=== PATIENT | male | born 1985 | race Hispanic/Latino ===

== ENCOUNTER 2019-08-25 14:16 | Inpatient (IN) | payer OTHER ==
[~2019-08-25] VITALS: Ht 162.6 cm; Wt 110.2 kg
[2019-08-25] MEDS ORDERED: THIAMINE HCL 100 MG TABLET ONE (14:35)
[2019-08-25 14:48] LABS: BASOPHILS % (AUTO) 0.7 % (0.0-5.0); EOSINOPHILS % (AUTO) 0.4 % (0.0-8.0); HEMATOCRIT 40.3 % (42-54); LYMPHOCYTES % (AUTO) 29.7 % (21.0-51.0); MEAN CORPUSCULAR HEMOGLOBIN 30.3 pg (27.0-33.0); MEAN CORPUSCULAR VOLUME 91.8 fL (79-99); MONOCYTES % (AUTO) 9.9 % (3.0-13.0); NEUTROPHILS % (AUTO) 59.2 % (40.0-77.0); PLATELET COUNT (AUTO) 84 K/uL (130-400); RED BLOOD CELL COUNT(AUTO) 4.39 MIL/uL (4.50-6.20); RED CELL DISTRIBUTION WIDTH 13.2 % (11.0-15.5)
[2019-08-25 14:56] LABS: APPEARANCE,URINE Clear (CLEAR); BILIRUBIN,URINE Negative (NEGATIVE); COLOR,URINE Yellow (YELLOW); GLUCOSE, URINE (UA) Negative (NEGATIVE); KETONES,URINE Negative (NEGATIVE); LEUKOCYTE ESTERASE ,URINE Negative (NEGATIVE); NITRATE,URINE Negative (NEGATIVE); OCCULT BLOOD,URINE Negative (NEGATIVE); PROTEIN,URINE POS 2+ mg/dL (NEGATIVE)
[2019-08-25 14:59] LABS: CARBON DIOXIDE 25 mmol/L (21-32); CHLORIDE 98 mmol/L (101-111); CREATININE 0.6 mg/dL (0.5-1.5); GLOMERULAR FILTR. RATE CALC 164 mL/min (>60); GLUCOSE,RANDOM 126 mg/dL (70-105); POTASSIUM 3.7 mmol/L (3.5-5.1); SODIUM SERUM 136 mmol/L (136-145); UREA NITROGEN, BLOOD 3 mg/dL (7-18)
[2019-08-25 15:04] LABS: AMPHET/METH SCREEN,URINE NEGATIVE (NEGATIVE); BARBITURATE SCREEN, URINE NEGATIVE (NEGATIVE); BENZODIAZEPINES SCREEN,URINE NEGATIVE (NEGATIVE); CANNABINOID SCREEN,URINE NEGATIVE (NEGATIVE); COCAINE SCREEN,URINE NEGATIVE (NEGATIVE); OPIATE SCREEN,URINE NEGATIVE (NEGATIVE); PHENCYCLIDINE SCREEN,URINE NEGATIVE (NEGATIVE)
[2019-08-25 15:05] LABS: ALANINE AMINOTRANSFERASE 57 U/L (12-78); ALBUMIN 3.5 g/dL (3.5-5.0); ASPARTATE AMINOTRANSFERASE 182 U/L (10-37); BILIRUBIN,TOTAL 1.3 mg/dL (0.2-1.0); CREATINE KINASE, TOTAL 330 U/L (21-232); TOTAL PROTEIN, SERUM 10.3 g/dL (6.0-8.3)
[2019-08-25 15:24] LABS: ACETAMINOPHEN < 1 mcg/mL (10-29); SALICYLATE < 2.8 mg/dL (2.8-20.0)
[2019-08-25 15:27] LABS: ALCOHOL, BLOOD 494 mg/dL (0-10)
[2019-08-25 15:29] LABS: BACTERIA,URINE Few /HPF (None Seen); MUCUS,URINE Few LPF (None Seen); RBC,URINE 0-1 /HPF (0-1); SQUAMOUS EPITHELIAL CELL,UR 0-2 /HPF (0-2); WBC,URINE 0-1 /HPF (0-1)
[2019-08-25] MEDS ORDERED: SODIUM CHLORIDE 0.9% 1000ML 1,000 ML IV ONE ×3 (16:08→23:39)
[2019-08-25] MEDS ORDERED: IBUPROFEN 400 MG TABLET ONE (21:25)
[2019-08-26 04:33] LABS: HEMATOCRIT 39.9 % (42-54)
[2019-08-26] MEDS ORDERED: LORAZEPAM 2 MG/ML 1 ML VIAL ONE (05:13)
[2019-08-26] MEDS ORDERED: ONDANSETRON HCL 4 MG/2 ML VIAL ONE (05:13)
[2019-08-26] MEDS ORDERED: FAMOTIDINE/PF 20 MG/2 ML VIAL IV ONE (05:13)
[2019-08-26] MEDS ORDERED: SODIUM CHLORIDE 0.9% 1000ML 1,000 ML IV ONE (05:18)
[2019-08-26] MEDS: SODIUM CHLORIDE 0.9% 1000ML 1,000 ML IV SCH ×3 (05:29→17:04)
[2019-08-26] MEDS ORDERED: LIDOCAINE HCL-MPF 1% 2ML VIAL IJ PRN (05:30)
[2019-08-26] MEDS ORDERED: GLUCAGON 1MG KIT 1 MG ML IM PRN ×2 (05:30→10:15)
[2019-08-26] MEDS ORDERED: DIPHENHYDRAMINE HCL 25 MG CAPSULE PO PRN (05:30)
[2019-08-26] MEDS ORDERED: NITROGLYCERIN 0.4 MG SL TAB SL PRN (05:30)
[2019-08-26] MEDS ORDERED: POTASSIUM CHLORIDE 20 MEQ ERTAB PO PRN (05:30)
[2019-08-26] MEDS ORDERED: LORAZEPAM 2 MG/ML 1 ML VIAL IVP PRN ×2 (05:30)
[2019-08-26] MEDS ORDERED: ACETAMINOPHEN 325 MG TAB PO PRN ×2 (05:30→06:00)
[2019-08-26] MEDS ORDERED: DEXTROSE 50%-WATER 50 ML DISP.SYRIN IV PRN ×2 (05:30→10:15)
[2019-08-26] MEDS ORDERED: ONDANSETRON HCL 4 MG/2 ML VIAL IV PRN (05:30)
[2019-08-26] MEDS ORDERED: SODIUM CHLORIDE 0.9% 1000ML 1,000 ML IV SCH (05:30)
[2019-08-26] MEDS ORDERED: PHARMACY COMMUNICATION MISC PRN (05:30)
[2019-08-26] MEDS ORDERED: POTASSIUM CHLORIDE 10% ELIXIR 20 MEQ/15 ML UDCUP PO PRN (05:30)
[2019-08-26] MEDS ORDERED: MAGNESIUM 2GM PREMIX 50ML 50 ML IV PRN (05:30)
[2019-08-26] MEDS ORDERED: POTASSIUM CHLORIDE 10MEQ/100ML 100 ML IV PRN (05:30)
[2019-08-26] MEDS ORDERED: CHLORDIAZEPOXIDE HCL 25 MG CAP PO PRN (05:30)
[2019-08-26] MEDS ORDERED: PROMETHAZINE HCL 25 MG TABLET PO PRN (05:30)
[2019-08-26] MEDS: CHLORDIAZEPOXIDE HCL 25 MG CAP PO SCH ×3 (06:00→17:04)
[2019-08-26] MEDS ORDERED: CLONIDINE HCL 0.1 MG TABLET PO SCH (06:15)
[2019-08-26 06:22] LABS: CARBON DIOXIDE 24 mmol/L (21-32); CHLORIDE 101 mmol/L (101-111); CREATININE 0.6 mg/dL (0.5-1.5); GLOMERULAR FILTR. RATE CALC 164 mL/min (>60); GLUCOSE,RANDOM 122 mg/dL (70-105); POTASSIUM 3.9 mmol/L (3.5-5.1); SODIUM SERUM 138 mmol/L (136-145); UREA NITROGEN, BLOOD 4 mg/dL (7-18)
[2019-08-26] MEDS: THIAMINE HCL 100 MG, FOLIC ACID 1 MG, M.V.I. IV [ADULT] 10 ML in SODIUM CHLORIDE 0.9% 1... IV SCH (06:30)
[2019-08-26 06:33] LABS: ALANINE AMINOTRANSFERASE 55 U/L (12-78); ALBUMIN 3.4 g/dL (3.5-5.0); ASPARTATE AMINOTRANSFERASE 150 U/L (10-37); BILIRUBIN,TOTAL 1.4 mg/dL (0.2-1.0); CREATINE KINASE, TOTAL 350 U/L (21-232); MYOGLOBIN 36 ng/mL (10-92); PHOSPHORUS 3.8 mg/dL (2.5-4.9); TOTAL PROTEIN, SERUM 9.4 g/dL (6.0-8.3); TROPONIN I < 0.04 ng/mL (0.00-0.06)
[2019-08-26 06:35] LABS: BASOPHILS % (AUTO) 0.9 % (0.0-5.0); EOSINOPHILS % (AUTO) 0.7 % (0.0-8.0); LYMPHOCYTES % (AUTO) 26.6 % (21.0-51.0); MEAN CORPUSCULAR HEMOGLOBIN 30.9 pg (27.0-33.0); MEAN CORPUSCULAR HGB CONC 33.2 g/dL (32.0-36.0); MONOCYTES % (AUTO) 10.4 % (3.0-13.0); PLATELET COUNT (AUTO) 73 K/uL (130-400); RED BLOOD CELL COUNT(AUTO) 4.27 MIL/uL (4.50-6.20); RED CELL DISTRIBUTION WIDTH 13.4 % (11.0-15.5)
[2019-08-26 06:45] LABS: HEMOGLOBIN A1C 6.2 % (4.0-6.0)
[2019-08-26] MEDS: INSULIN HUMULIN R 100 UNIT/ML 3ML SQ SCH ×4 (07:30→21:00)
[2019-08-26 08:00] VITALS: BP 138/94
[2019-08-26] MEDS: FAMOTIDINE 20MG TAB 20 MG TAB PO SCH ×2 (09:00→19:47)
[2019-08-26] MEDS: FOLIC ACID 1 MG TABLET PO SCH (09:00)
[2019-08-26] MEDS: THIAMINE HCL 100 MG/ML 2ML VIAL IM SCH (09:00)
[2019-08-26] MEDS: MULTIVITAMIN TABLET PO SCH (09:00)
[2019-08-26] MEDS: ACETAMINOPHEN EXTRA STRENGTH 500 MG TABLET PO PRN ×2 (10:58→17:12)
[2019-08-26] MEDS ORDERED: LISI10TA7 PO (11:30)
[2019-08-26] MEDS ORDERED: INSULIN HUMULIN R 100 UNIT/ML 3ML SQ SCH (11:30)
[2019-08-26 12:00] VITALS: BP 162/91
[2019-08-26] MEDS ORDERED: LISINOPRIL 10 MG TABLET ONE (12:02)
--- NOTE | 2019-08-26 13:24 | NUR ---
DR. ROSAS NOTIFIED VIA PHONE. HE SAID OK AFTER GETTING RM NUMBER
[2019-08-26] MEDS: HYDRALAZINE HCL 20 MG/ML VIAL IV PRN (17:05)
--- NOTE | 2019-08-26 17:45 | NUR ---
INITIAL Patient lives with mother, Fior Keyes, [phone]. No home services or DME. 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 PCP is Dr. Ronel Ramires. Pharmacy is [facility] located on [facility]. Patient has no insurance or benefits. 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 Patient was provided with community resources for post hospitalization follow up. Patient was also provided with Good RX card for prescriptions and educated on [facility] $4 medication program and eMar $5 medication program. Patient is being assisted by [employer] for financial matters. Addendum: 08/26/19 at 1747 by RONEL STOCK Amended: Links added.
[2019-08-26 17:46] LABS: HEMATOCRIT 38.1 % (42-54)
--- NOTE | 2019-08-26 17:49 | NUR ---
ETOH & Suicidal Ideations SW met with patient and discussed alcohol abuse. Patient stated that he had starting drinking since he was 16 years old but would only drink socially. Patient admitted that he started to drink heavily after his daughter who was born prematurely at 6 months . Patient admits that he drank at least a 15 pack and several 24 oz cans of beer a day. He also admits to smoking marijuana since the age of 15 but only does it on occasion. Patient states he has not been sleeping more than 5 hours a day and eats only once a day due to little to no appetite. He states he suffers from depression and anxiety daily but has never sought treatment for his alcohol abuse, depression or anxiety. SW provided patient with information for counsel[facility] with [facility] and [facility]. Patient was also provided with information regarding local Substance abuse counseling centers and Alcholic Anonymous meetings. Patient once again was receptive. He stated that he does not remember stating that he wanted to kill himself but reports from his mother state otherwise. Patient is extremely shaky and unable to focus during conversation. He stated that he was extremely tired. Patient is presently on a 1:1 observation due to suicidal ideations. SW will follow up with patient to discuss further treatment options and goals for treatment.
--- NOTE | 2019-08-26 18:35 | NUR ---
pt with blood tinged phlegm continues to deny any hematemesis. pt's mother continuously asked pt if he was vomiting and he continued to say no. pt education regarding hematemesis with complications. explained of importance and rationale of informing doctor if pt has experienced any vomiting of blood and pt asked, "can they fix it". pt informed of procedures that could be done to help him if he was throwing up blood. pt reports he bled from his nose yesterday and saturday he spat up blood and had brought up bright red blood. pt denied any vomiting blood today and yesterday. h/h q6hrs. see labs. will continue to monitor.
--- NOTE | 2019-08-26 19:45 | NUR ---
MD CONSULT DR. GUTIERRES TO SEE AND EXAMEN PATIENT WITH ORDERS
[2019-08-26 19:50] VITALS: BP 159/89
[2019-08-26] MEDS ORDERED: SODIUM CHLORIDE 3% FOR INHALATION 4 ML/AMP VIAL.NEB IH ONE (22:44)
[2019-08-26 23:52] VITALS: BP 170/107
--- NOTE | 2019-08-27 | NUR ---
b/p b/p 170/107, no sob no c/o pain at this time, [id number] mg ivp given slowly
--- NOTE | 2019-08-27 00:50 | NUR ---
med effect b/p 144/71, no c/o pain
[2019-08-27] MEDS: SODIUM CHLORIDE 0.9% 1000ML 1,000 ML IV SCH ×3 (02:04→14:49)
[2019-08-27 04:00] VITALS: BP 140/88
[2019-08-27 04:34] LABS: BASOPHILS % (AUTO) 0.4 % (0.0-5.0); HEMATOCRIT 37.4 % (42-54); MEAN CORPUSCULAR HEMOGLOBIN 30.5 pg (27.0-33.0); MEAN CORPUSCULAR HGB CONC 32.9 g/dL (32.0-36.0); MEAN CORPUSCULAR VOLUME 92.8 fL (79-99); MONOCYTES % (AUTO) 11.3 % (3.0-13.0); NEUTROPHILS % (AUTO) 72.2 % (40.0-77.0); PLATELET COUNT (AUTO) 56 K/uL (130-400); RED BLOOD CELL COUNT(AUTO) 4.03 MIL/uL (4.50-6.20); RED CELL DISTRIBUTION WIDTH 12.9 % (11.0-15.5); WHITE BLOOD COUNT (AUTO) 7.4 K/uL (4.8-10.8)
[2019-08-27 05:04] LABS: ALANINE AMINOTRANSFERASE 42 U/L (12-78); ALBUMIN 2.8 g/dL (3.5-5.0); ALCOHOL, BLOOD < 3 mg/dL (0-10); ASPARTATE AMINOTRANSFERASE 113 U/L (10-37); BILIRUBIN,TOTAL 2.6 mg/dL (0.2-1.0); CARBON DIOXIDE 23 mmol/L (21-32); CHLORIDE 97 mmol/L (101-111); CREATININE 0.6 mg/dL (0.5-1.5); GLOMERULAR FILTR. RATE CALC 164 mL/min (>60); GLUCOSE,RANDOM 99 mg/dL (70-105); PHOSPHORUS 2.9 mg/dL (2.5-4.9); POTASSIUM 3.5 mmol/L (3.5-5.1); SODIUM SERUM 134 mmol/L (136-145); TOTAL PROTEIN, SERUM 8.6 g/dL (6.0-8.3); UREA NITROGEN, BLOOD 7 mg/dL (7-18)
[2019-08-27] MEDS: CHLORDIAZEPOXIDE HCL 25 MG CAP PO SCH ×4 (05:33→16:37)
[2019-08-27] MEDS: INSULIN HUMULIN R 100 UNIT/ML 3ML SQ SCH ×4 (07:30→20:39)
[2019-08-27] MEDS: THIAMINE HCL 100 MG/ML 2ML VIAL IM SCH (09:00)
[2019-08-27] MEDS: FOLIC ACID 1 MG TABLET PO SCH (09:00)
[2019-08-27] MEDS: MULTIVITAMIN TABLET PO SCH (09:00)
[2019-08-27] MEDS: FAMOTIDINE 20MG TAB 20 MG TAB PO SCH ×2 (09:49→20:34)
[2019-08-27] MEDS: LISINOPRIL 10 MG TABLET PO SCH (09:50)
[2019-08-27] MEDS: THIAMINE HCL 100 MG, FOLIC ACID 1 MG, M.V.I. IV [ADULT] 10 ML in SODIUM CHLORIDE 0.9% 1... IV SCH (10:31)
--- NOTE | 2019-08-27 14:27 | NUR ---
RD NOTIFICATION DIET: [id number]. LABS REVIEWED. MEDS REVIEWED. SKIN INTACT. PT REPORTS HAVING POOR PO PRIOR TO ADMISSION AND DECREASED APPETITE. USING ALCOHOL TO COPE FOR THE LOSS OF HIS DAUGHTER. APPETITE IS SLOWLY IMPROVING. KARTHIKEYAN RECOMMENDS MULTIVITAMIN/ MINERAL DAILY FOR HOME MONITOR FOR SUICIDAL IDEATIONS MONITOR PO INTAKE AND APPETITE Addendum: 08/27/19 at [address] Amended: Links added.
[2019-08-27] MEDS: CHLORDIAZEPOXIDE HCL 25 MG CAP PO PRN ×2 (14:56)
[2019-08-27 16:13] VITALS: BP 168/97
[2019-08-27] MEDS: HYDRALAZINE HCL 20 MG/ML VIAL IV PRN ×2 (16:38)
--- NOTE | 2019-08-27 17:29 | NUR ---
Suicidal Ideations SW met with patient and discussed suicidal ideations that family alleges that patient voiced when brought to hospital. Patient states that he does remember telling his mother that he did not want to live but does not remember telling his mother plan on how he was going to harm himself. Patient stated "I was drunk". He stated that he does not remember all the details of his conversation. Patient denies suicidal/homicidal ideations at this time. He also denies auditory/visual hallucinations. Patient states he feel much better today and is not as shaky. Patient informed SW that Psychiatrist, Dr. Philip Hairston came to speak with him as well. Patient plans to seek treatment for alcohol abuse, depression and anxiety once he is discharged from hospital. SW asked patient's mother if guns that patient owned were removed from the home. Mother stated that they were not yet moved but family was planning to move them to patient's sister's home before patient was discharged. SW will continue to follow up with patient. Patient continues on a 1:1 observation due to suicidal ideations and alcohol withdrawal.
[2019-08-27 17:51] VITALS: BP 144/81
[2019-08-27 19:30] VITALS: BP 128/74
[2019-08-27] MEDS ORDERED: PHARMACY COMMUNICATION MISC SCH (20:00)
[2019-08-27] MEDS ORDERED: OXYMETAZOLINE HCL SPRAY 15 ML BOTTLE EN PRN (20:45)
[2019-08-27] MEDS ORDERED: SODIUM CHLORIDE 0.9% IJ ONE (21:00)
[2019-08-27] MEDS ORDERED: DESMOPRESSIN IJ ONE (21:00)
[2019-08-27 23:30] VITALS: BP 133/80
[2019-08-28] MEDS: SODIUM CHLORIDE 0.9% 1000ML 1,000 ML IV SCH ×4 (00:14→22:20)
[2019-08-28] MEDS: CHLORDIAZEPOXIDE HCL 25 MG CAP PO SCH ×5 (00:14→23:29)
[2019-08-28 04:00] VITALS: BP 145/81
[2019-08-28] MEDS: INSULIN HUMULIN R 100 UNIT/ML 3ML SQ SCH ×4 (06:05→21:00)
[2019-08-28 08:00] VITALS: BP 171/91
[2019-08-28] MEDS: FOLIC ACID 1 MG TABLET PO SCH (09:00)
[2019-08-28] MEDS: THIAMINE HCL 100 MG/ML 2ML VIAL IM SCH (09:00)
[2019-08-28] MEDS: MULTIVITAMIN TABLET PO SCH (09:00)
[2019-08-28] MEDS: LISINOPRIL 10 MG TABLET PO SCH (09:28)
[2019-08-28] MEDS: FAMOTIDINE 20MG TAB 20 MG TAB PO SCH ×2 (09:28→22:19)
[2019-08-28] MEDS: THIAMINE HCL 100 MG, FOLIC ACID 1 MG, M.V.I. IV [ADULT] 10 ML in SODIUM CHLORIDE 0.9% 1... IV SCH (09:29)
[2019-08-28 11:33] LABS: INR 1.37 (0.85-1.15); PARTIAL THROMBOPLASTIN TIME 34.7 SEC (26.3-35.5); PROTHROMBIN TIME 14.2 SEC (9.6-11.6)
[2019-08-28 12:00] VITALS: BP 136/90
[2019-08-28] MEDS ORDERED: IOHEXOL-350 75 ML VIAL IV ONE (15:38)
[2019-08-28 16:00] VITALS: BP 143/94
--- NOTE | 2019-08-28 18:42 | NUR ---
patient amblulatory Addendum: 08/28/19 at 1846 by GINGER LEAHY RN RN Amended: Links added.
[2019-08-28 19:30] VITALS: BP 138/88
--- NOTE | 2019-08-28 22:30 | NUR ---
LOW PLATELET SPOKE TO PATIENTS MOTHER DEBI BERNAL , PATIENTS MOTHER ASKING WHEN ARE THE GOING TO TRANSFUSE PLATELET BECAUSE PLATELET COUNT IS 56 AND SHE IS WORRIED PATIENT CAN BLEED TO , HOSPITALIST BRICK GRADER ZEUS SANTIZO INFORMED OF FAMILY MEMBER CONCERNED, PER HOSPITALIST WILL RECHECK HEMATOLOGY IN THE AM AND OBSERVE FOR BLEEDING TONIGHT
[2019-08-28 23:45] VITALS: BP 151/92
[2019-08-29] VITALS (7 sets, daily range): BP systolic 138–158; BP diastolic 81–98
[2019-08-29] MEDS: SODIUM CHLORIDE 0.9% 1000ML 1,000 ML IV SCH ×2 (00:36→06:52)
[2019-08-29 05:47] LABS: HEMATOCRIT 35.8 % (42-54); PLATELET COUNT (AUTO) 61 K/uL (130-400); RED BLOOD CELL COUNT(AUTO) 3.81 MIL/uL (4.50-6.20); RED CELL DISTRIBUTION WIDTH 13.2 % (11.0-15.5); WHITE BLOOD COUNT (AUTO) 6.4 K/uL (4.8-10.8)
[2019-08-29] MEDS: INSULIN HUMULIN R 100 UNIT/ML 3ML SQ SCH ×4 (06:03→21:00)
[2019-08-29 06:07] LABS: ALBUMIN 2.6 g/dL (3.5-5.0); BILIRUBIN,TOTAL 1.9 mg/dL (0.2-1.0); CREATININE 0.6 mg/dL (0.5-1.5); POTASSIUM 3.4 mmol/L (3.5-5.1); TOTAL PROTEIN, SERUM 8.2 g/dL (6.0-8.3)
[2019-08-29 06:08] LABS: BAND NEUTROPHILS % (MANUAL) 1 % (0-2); BASOPHILS % (MANUAL) 1 % (0-2); EOSINOPHILS % (MANUAL) 4 % (1-6); LYMPHOCYTES % (MANUAL) 28 % (22-44); MAN.DIFF COMMENT-IMPRESSION MANUAL DIFFERENTIAL; MONOCYTES % (MANUAL) 9 % (2-9); SEGMENTED NEUTROPHILS % 57 % (40-70)
[2019-08-29] MEDS: FAMOTIDINE 20MG TAB 20 MG TAB PO SCH ×2 (08:25→21:31)
[2019-08-29] MEDS: MULTIVITAMIN TABLET PO SCH (08:25)
[2019-08-29] MEDS: LISINOPRIL 10 MG TABLET PO SCH (08:26)
--- NOTE | 2019-08-29 10:56 | NUR ---
dr hernandez paged through answering service regarding concult. pending call back
[2019-08-29] MEDS: FOLIC ACID 1 MG TABLET PO SCH (14:45)
--- NOTE | 2019-08-29 16:46 | NUR ---
ambulatory Addendum: 08/29/19 at 1648 by GINGER LEAHY RN RN Amended: Neptali added.
--- NOTE | 2019-08-29 18:22 | NUR ---
PATIENT MEDICALLY CLEARED PER PRIMARY MD STANDPOINT ,CALLED TO [facility] [phone] ANS SPOKE WITH LAURA . PER LAURA WILL CALL THE ONCALL WORKER .. PENDING CALL BACK
--- NOTE | 2019-08-29 20:00 | NUR ---
PAL GRAFER FROM [facility], IN TO SEE PT. UPDATED ON PT'S CONDITION AND MD NOTES.
--- NOTE | 2019-08-29 21:30 | NUR ---
MEDS PT STILL BEING INTERVIEWED BY NATASHA MACKENZIE. SHIFT ASSESSMENT DONE, PLEASE REFER TO CHART. DUE MEDS ADMINISTERED, TOLERATED WELL. KEPT RESTED AND COMFORTABLE. SITTER AT BEDSIDE. Addendum: 08/30/19 at 0130 by ABDIEL COLLADO RN RN Amended: Links added.
--- NOTE | 2019-08-29 23:15 | NUR ---
NARDA KAUR, FROM [facility], INFORMED SHIP PROPELLER FINISHER THAT PT WAS EVALUATED AND DOES QUALIFY FOR OUT PT REHAB FOR HIS ALCOHOLISM, NO SUICIDAL IDEATION VERBALIZED AT THIS TIME. WILL FOLLOW UP IN THE AM.
--- NOTE | 2019-08-30 02:00 | NUR ---
ROUNDS PT FAIRLY ASLEEP WITH RESPIRATIONS EVEN AND UNLABORED. NO NOTED DISTRESS. KEPT UNDISTURBED FOR NOW. WILL MONITOR PT. CALL LIGHT WITHIN REACH. SITTER AT BEDSIDE.
[2019-08-30 04:00] VITALS: BP 155/91
--- NOTE | 2019-08-30 05:47 | NUR ---
ROUNDS PT RESTING WELL, FAIRLY ASLEEP. NO DISTRESS NOTED. KEPT RESTED AND COMFORTABLE. FOR MORE CARE.
[2019-08-30] MEDS: INSULIN HUMULIN R 100 UNIT/ML 3ML SQ SCH ×2 (05:59→11:30)
[2019-08-30 06:26] LABS: BASOPHILS % (AUTO) 0.7 % (0.0-5.0); EOSINOPHILS % (AUTO) 2.7 % (0.0-8.0); HEMATOCRIT 35.7 % (42-54); LYMPHOCYTES % (AUTO) 23.6 % (21.0-51.0); MEAN CORPUSCULAR HEMOGLOBIN 31.1 pg (27.0-33.0); MEAN CORPUSCULAR HGB CONC 33.1 g/dL (32.0-36.0); MEAN CORPUSCULAR VOLUME 93.9 fL (79-99); MONOCYTES % (AUTO) 15.5 % (3.0-13.0); NEUTROPHILS % (AUTO) 57.3 % (40.0-77.0); PLATELET COUNT (AUTO) 86 K/uL (130-400); RED CELL DISTRIBUTION WIDTH 13.4 % (11.0-15.5); WHITE BLOOD COUNT (AUTO) 5.6 K/uL (4.8-10.8)
[2019-08-30 06:53] LABS: ALBUMIN 2.7 g/dL (3.5-5.0); BILIRUBIN,TOTAL 1.5 mg/dL (0.2-1.0); CREATININE 0.5 mg/dL (0.5-1.5); POTASSIUM 3.5 mmol/L (3.5-5.1); TOTAL PROTEIN, SERUM 8.2 g/dL (6.0-8.3)
[2019-08-30 08:00] VITALS: BP 141/86
[2019-08-30] MEDS: MULTIVITAMIN TABLET PO SCH (08:44)
[2019-08-30] MEDS: FAMOTIDINE 20MG TAB 20 MG TAB PO SCH (08:44)
[2019-08-30] MEDS: LISINOPRIL 10 MG TABLET PO SCH (08:45)
[2019-08-30] MEDS ORDERED: FOLIC ACID 1 MG TABLET PO SCH (09:00)
[2019-08-30] MEDS ORDERED: FLU VACC QS2019-20 36MOS UP/PF 60 MCG/0.5 ML ML IM SCH (09:00)
[2019-08-30 12:00] VITALS: BP 151/88
--- NOTE | 2019-08-30 13:00 | NUR ---
PT GIVEN INSTRUCTION TO FOLLOW UP WITH [facility] T[facility]ROW AM, STATED UNDERSTANDING. PTS MOM PRESENT AT DISCHARGE.
[2019-08-30] MEDS ORDERED: FLU VACC QS2019-20 36MOS UP/PF 60 MCG/0.5 ML ML IM ONE (13:45)
[2019-08-30] MEDS: FOLIC ACID 1 MG TABLET PO SCH (14:45)
== END 2019-08-30 15:30 | disposition home or self-care (01) | DRG 881 ==
LOC: EDH 14:16 → EDHIP 14:17 → EDH 19:17 → 4CH 08-26 08:17
PROVIDERS: ADMIT Internal Medicine; ATTEND Internal Medicine
DX: F32.9 Major depressive disorder, single episode, unspecified (principal); R45.851 Suicidal ideations; F10.239 Alcohol dependence with withdrawal, unspecified; K92.0 Hematemesis; K06.8 Other specified disorders of gingiva and edentulous alveolar ridge; R74.8 Abnormal levels of other serum enzymes; I10 Essential (primary) hypertension; D69.59 Other secondary thrombocytopenia; F10.229 Alcohol dependence with intoxication, unspecified; F12.90 Cannabis use, unspecified, uncomplicated; F41.9 Anxiety disorder, unspecified; E11.65 Type 2 diabetes mellitus with hyperglycemia; Y90.8 Blood alcohol level of 240 mg/100 ml or more; Z23 Encounter for immunization
CPT/HCPCS: 36415; 71045; 74177; 80053; 80305; 81001; 82270; 82550; 82607; 82746; 82948; 83036; 83735; 83874; 84100; 84484; 85014; 85018; 85025; 85610; 85730; 87071; 87077; 87186; 87205; 93005; 94640; G0378; G0480; G0481; J0360; J2060; J2405; J2597; J3411; J3475; J3490; J7030; Q2035; Q9967

== ENCOUNTER 2020-05-10 07:22 | Inpatient (IN) | payer OTHER, SELFPAY ==
[~2020-05-10] VITALS: Ht 162.6 cm; Wt 92.1 kg
[~2020-05-10 07:22] MED LIST: LISI10TA7 PO
[2020-05-10] MEDS ORDERED: DiphenhydrAMINE HCL 50 MG/ML VIAL ONE (08:09)
[2020-05-10] MEDS ORDERED: PROCHLORPERAZINE EDISYLATE 10 MG/2 ML VIAL ONE (08:10)
[2020-05-10] MEDS ORDERED: PANTOPRAZOLE 40 MG/VIAL ONE ×2 (08:10→17:53)
[2020-05-10 08:12] LABS: BASOPHILS % (AUTO) 0.9 % (0.0-5.0); EOSINOPHILS % (AUTO) 0.7 % (0.0-8.0); HEMATOCRIT 35.5 % (42-54); LYMPHOCYTES % (AUTO) 30.9 % (21.0-51.0); MEAN CORPUSCULAR HEMOGLOBIN 33.1 pg (27.0-33.0); MEAN CORPUSCULAR HGB CONC 34.6 g/dL (32.0-36.0); MEAN CORPUSCULAR VOLUME 95.4 fL (79-99); MONOCYTES % (AUTO) 7.3 % (3.0-13.0); NEUTROPHILS % (AUTO) 60.1 % (40.0-77.0); PLATELET COUNT (AUTO) 157 K/uL (130-400); RED BLOOD CELL COUNT(AUTO) 3.72 MIL/uL (4.50-6.20); RED CELL DISTRIBUTION WIDTH 13.4 % (11.0-15.5); WHITE BLOOD COUNT (AUTO) 8.1 K/uL (4.8-10.8)
[2020-05-10] MEDS ORDERED: OCTREOTIDE ACETATE 100 MCG/ML AMP ONE (08:12)
[2020-05-10] MEDS ORDERED: SODIUM CHLORIDE 0.9% 50 ML IV ONE (08:14)
[2020-05-10] MEDS ORDERED: SODIUM CHLORIDE 0.9% 100 ML IV ONE ×3 (08:14→17:53)
[2020-05-10 08:34] LABS: ALBUMIN 2.9 g/dL (3.5-5.0); BILIRUBIN,TOTAL 1.2 mg/dL (0.2-1.0); CREATININE 0.7 mg/dL (0.5-1.5); POTASSIUM 3.6 mmol/L (3.5-5.1); TOTAL PROTEIN, SERUM 9.1 g/dL (6.0-8.3)
[2020-05-10 08:40] LABS: INR 1.28 (0.85-1.15); PARTIAL THROMBOPLASTIN TIME 34.3 SEC (26.3-35.5); PROTHROMBIN TIME 13.7 SEC (9.6-11.6)
[2020-05-10] MEDS ORDERED: OCTREOTIDE ACETATE 200 MCG/ML 5 ML VIAL ONE (08:49)
[2020-05-10] MEDS ORDERED: MORPHINE SULFATE 4 MG/1ML SYG ONE (09:00)
[2020-05-10 14:12] LABS: APPEARANCE,URINE Clear (CLEAR); BILIRUBIN,URINE Negative (NEGATIVE); COLOR,URINE Yellow (YELLOW); GLUCOSE, URINE (UA) Negative (NEGATIVE); KETONES,URINE Negative (NEGATIVE); LEUKOCYTE ESTERASE ,URINE Negative (NEGATIVE); NITRATE,URINE Negative (NEGATIVE); OCCULT BLOOD,URINE Negative (NEGATIVE); PH,URINE 6.5 (5.0-8.0); PROTEIN,URINE Negative (NEGATIVE); UROBILINOGEN,URINE 0.2 mg/dL (0.2-1.0)
[2020-05-10] MEDS ORDERED: ONDANSETRON HCL 4 MG/2 ML VIAL ONE ×2 (14:13→17:51)
[2020-05-10] MEDS ORDERED: MELA1TAB21 PO (18:49)
[2020-05-10] MEDS ORDERED: THIA100T75 PO (18:49)
[2020-05-10] MEDS ORDERED: MULT1TAB66 PO (18:49)
[2020-05-10] MEDS ORDERED: FOLIC (18:49)
[2020-05-10] MEDS ORDERED: METF-446 PO (18:49)
[2020-05-10] MEDS ORDERED: ONDA-104 PO (18:49)
[2020-05-10] MEDS ORDERED: MILK175T2 PO (18:49)
[2020-05-10] MEDS ORDERED: PANT40TA54 PO (18:49)
[2020-05-10] MEDS ORDERED: ZENPEP PO (18:49)
--- NOTE | 2020-05-10 19:35 | NUR ---
Patient's b/p up to 189/104, called back within a few seconds. Informed him of patient's b/p elevation. Orders received for clonodine 0.1 mg one po every 4 hours prn for sbp greater then 170.
[2020-05-10] MEDS ORDERED: CLONIDINE HCL 0.1 MG TABLET PO PRN (19:45)
[2020-05-10] MEDS ORDERED: GLUCAGON 1MG KIT 1 MG ML IM PRN (19:45)
[2020-05-10] MEDS ORDERED: DEXTROSE 50%-WATER 50 ML DISP.SYRIN IV PRN (19:45)
[2020-05-10] MEDS: METOCLOPRAMIDE 10 MG/2 ML VIAL IVP SCH (20:02)
--- NOTE | 2020-05-10 20:15 | NUR ---
I spoke to patient and mother regarding procedure brittni informed them of EGD with peg. Mother stated she needed to speak with because it had not been discussed for peg placement. Informed her would page Dr. Mccarthy to check on procedure and that she would like him to call he. Dr. Mccarthy paged via answering service.
[2020-05-10] MEDS ORDERED: MEPERIDINE-PF 50 MG/ML SYG IVP ONE (20:45)
[2020-05-10 20:50] VITALS: BP 189/104
[2020-05-10] MEDS ORDERED: METOPROLOL TARTRATE 50 MG TAB ONE (23:07)
[2020-05-10] MEDS ORDERED: METOPROLOL TARTRATE 50 MG TAB PO SCH (23:30)
[2020-05-10] MEDS: INSULIN R NPO SSI SQ SCH (23:54)
[2020-05-11] VITALS (17 sets, daily range): BP systolic 111–184; BP diastolic 58–102
[2020-05-11] MEDS: METOCLOPRAMIDE 10 MG/2 ML VIAL IVP SCH (01:18)
[2020-05-11] MEDS: PANTOPRAZOLE SODIUM 80 MG in NS 100ML IVP SCH ×2 (01:20→11:04)
[2020-05-11] MEDS: INSULIN R NPO SSI SQ SCH ×3 (06:00→18:00)
[2020-05-11 06:09] LABS: BASOPHILS % (AUTO) 0.8 % (0.0-5.0); EOSINOPHILS % (AUTO) 0.8 % (0.0-8.0); HEMATOCRIT 37.1 % (42-54); LYMPHOCYTES % (AUTO) 20.3 % (21.0-51.0); MEAN CORPUSCULAR HEMOGLOBIN 33.1 pg (27.0-33.0); MEAN CORPUSCULAR HGB CONC 34.8 g/dL (32.0-36.0); MEAN CORPUSCULAR VOLUME 95.1 fL (79-99); NEUTROPHILS % (AUTO) 69.8 % (40.0-77.0); PLATELET COUNT (AUTO) 128 K/uL (130-400); RED CELL DISTRIBUTION WIDTH 13.2 % (11.0-15.5); WHITE BLOOD COUNT (AUTO) 7.9 K/uL (4.8-10.8)
[2020-05-11 06:19] LABS: CREATININE 0.7 mg/dL (0.5-1.5); POTASSIUM 3.7 mmol/L (3.5-5.1)
[2020-05-11 06:28] LABS: INR 1.38 (0.85-1.15); PARTIAL THROMBOPLASTIN TIME 34.2 SEC (26.3-35.5); PROTHROMBIN TIME 14.7 SEC (9.6-11.6)
[2020-05-11] MEDS: ONDANSETRON HCL 4 MG/2 ML VIAL IVP PRN ×3 (09:50→21:15)
[2020-05-11] MEDS: OCTREOTIDE ACETATE 500 MCG in SODIUM CHLORIDE 0.9% 97.5 ML IV SCH (10:59)
[2020-05-11] MEDS ORDERED: PROPOFOL 10 MG/ML 20ML VIAL IV ONE (13:48)
--- NOTE | 2020-05-11 14:15 | NUR ---
CHART CHECK COMPLETED. PT IS A 35 Y.O. MALE ADMITTED SECONDARY TO GI BLEED. PT HAS A PAST MEDICAL HISTORY SIGNIFICANT FOR CIRRHOSIS,DMII, PERIPHERAL NEUROPATHY, SEVERE ANXIETY, DEPRESSION. PT CURRENTLY NPO. PLEASE REQUEST FORMAL SKILLED SPEECH THERAPY ORDER IF PT PRESENTS WITH +S/S OF ASPIRATION SUCH COUGH RESPONSE, THROAT CLEAR OR WET VOCAL QUALITY AT MEAL TIMES. Addendum: 05/11/20 at [address] Amended: Links added.
--- NOTE | 2020-05-11 15:13 | NUR ---
DCP CM met with pt discussed dc plans. Pt is semi-independent prior to admission, lives at home with mother and nataleee, pt verbalized he has split custody with his son who comes and visit on certain days. Pt verbalized he has a cane. Denies any other equipments/services. Feels safe to go back home, mother and fiancee able to assist with transportation and needs as necessary. DC plan to home once stable. CM to continue to follow up. Addendum: 05/11/20 at 1515 by DANA ARTHUR LVN CM Amended: Links added.
[2020-05-11] MEDS: HYDROMORPHONE HCL 0.5 MG/0.5 ML ML IVP PRN ×2 (16:35→21:17)
[2020-05-11] MEDS: INSULIN HUMULIN R 100 UNIT/ML 3ML SQ SCH (21:00)
[2020-05-12 00:22] VITALS: BP 154/86
[2020-05-12] MEDS: PANTOPRAZOLE SODIUM 80 MG in NS 100ML IVP SCH ×3 (00:26→22:47)
[2020-05-12 04:06] VITALS: BP 145/86
[2020-05-12] MEDS: OCTREOTIDE ACETATE 500 MCG in SODIUM CHLORIDE 0.9% 97.5 ML IV SCH (05:24)
[2020-05-12] MEDS: INSULIN HUMULIN R 100 UNIT/ML 3ML SQ SCH ×4 (05:57→21:00)
[2020-05-12 09:57] VITALS: BP 169/105
[2020-05-12 12:48] VITALS: BP 129/85
--- NOTE | 2020-05-12 15:43 | NUR ---
RD NOTIFICATION Pt admitted due to GI bleed. Pt seen by RD due to severe unintentional wt loss. Pt has new dx of liver cirrhosis, as per pt he was dx 37 days ago. Wt loss of 120 lbs (as per pt) occurred in a span of 7-8 months. This indicates a 63% UBW classified as severe malnutrition and a 37% wt change in 8 months which is classified as severe unintentional wt loss. During the process pt has become severely weak, and unable to ambulate as before. This is indicative of muscle mass loss. Pt is at risk for moderate-severe malnutrition. Pt was offered Glucerna with meals, pt denied, pt was concern for it being "too much to eat in one meal" RN called RD office to send Glucerna to pt after RD visited pt. Pt stated a wt gain of 5 lbs in the last few months. RD RECOMMENDATION: Glucerna BID. ProMod 60 ml BID When medically feasible to advance pt, consider a GI soft [place] diet with a 75 GM CC modifier. Monitor PO intake and PO tolerance. LABS: BG 106, TOT CA 9.3, ALB 2.9, TOT PRO 9.1, NA 135, CL 99, HGB 12.9, HCT 37.1 LBM: 05/10/20 Addendum: 05/12/20 at [address] Amended: Links added.
[2020-05-12 17:07] VITALS: BP 135/97
[2020-05-12] MEDS ORDERED: OCTREOTIDE ACETATE 500 MCG in SODIUM CHLORIDE 0.9% 97.5 ML IV SCH (19:45)
[2020-05-12 20:48] VITALS: BP 136/78
[2020-05-13 00:27] VITALS: BP 129/74
[2020-05-13 04:16] VITALS: BP 141/88
[2020-05-13] MEDS: INSULIN HUMULIN R 100 UNIT/ML 3ML SQ SCH (05:28)
[2020-05-13 08:00] VITALS: BP 123/75
== END 2020-05-13 11:35 | disposition home or self-care (01) | DRG 378 ==
LOC: EDH 07:22 → EDHIP 07:23 → 3DH 18:43
PROVIDERS: ADMIT Internal Medicine; ATTEND Internal Medicine
PROC: 06L38CZ Occlusion of Esophageal Vein with Extraluminal Device, Via Natural or Artificial Opening Endoscopic (ICD-10-PCS; principal; 2020-05-11)
DX: K29.01 Acute gastritis with bleeding (principal); D62 Acute posthemorrhagic anemia; D68.9 Coagulation defect, unspecified; K74.60 Unspecified cirrhosis of liver; K92.0 Hematemesis; I10 Essential (primary) hypertension; E11.9 Type 2 diabetes mellitus without complications; D73.1 Hypersplenism; E11.42 Type 2 diabetes mellitus with diabetic polyneuropathy; E66.9 Obesity, unspecified; F10.20 Alcohol dependence, uncomplicated; Z80.0 Family history of malignant neoplasm of digestive organs; Z80.3 Family history of malignant neoplasm of breast; Z82.3 Family history of stroke; Z82.49 Family history of ischemic heart disease and other diseases of the circulatory system; Z83.3 Family history of diabetes mellitus; F32.9 Major depressive disorder, single episode, unspecified; F41.9 Anxiety disorder, unspecified; Z20.828 Contact with and (suspected) exposure to other viral communicable diseases
CPT/HCPCS: 36415; 43244; 80048; 80053; 81003; 82150; 82948; 83690; 85025; 85610; 85730; 86850; 86900; 86901; 86923; 87426; 97039; A4606; C9113; G0378; J0780; J1170; J1200; J2175; J2270; J2354; J2405; J2704; J2765; J7030; U0003

== ENCOUNTER 2020-06-22 22:26 | Emergency (ER) | payer OTHER ==
[~2020-06-22 22:26] MED LIST changes: +FOLIC; +LISI10TA24 PO; -LISI10TA7 PO; +MELA1TAB21 PO; +METF-446 PO; +MILK175T2 PO; +MULT1TAB67 PO; +ONDA-104 PO; +PANT40TA54 PO; +THIA100T75 PO; +ZENPEP PO
[2020-06-22] MEDS ORDERED: 0.9%NACL 1000ML 1,000 ML IV ONE (22:45)
[2020-06-22] MEDS ORDERED: PANTOPRAZOLE 40 MG/VIAL ONE (22:49)
[2020-06-22 22:57] LABS: BASOPHILS % (AUTO) 0.7 % (0.0-5.0); EOSINOPHILS % (AUTO) 0.6 % (0.0-8.0); HEMATOCRIT 35.9 % (42-54); LYMPHOCYTES % (AUTO) 35.3 % (21.0-51.0); MEAN CORPUSCULAR HEMOGLOBIN 31.7 pg (27.0-33.0); MEAN CORPUSCULAR HGB CONC 34.8 g/dL (32.0-36.0); MEAN CORPUSCULAR VOLUME 91.1 fL (79-99); MONOCYTES % (AUTO) 7.7 % (3.0-13.0); NEUTROPHILS % (AUTO) 55.6 % (40.0-77.0); PLATELET COUNT (AUTO) 211 K/uL (130-400); RED BLOOD CELL COUNT(AUTO) 3.94 MIL/uL (4.50-6.20); RED CELL DISTRIBUTION WIDTH 12.4 % (11.0-15.5); WHITE BLOOD COUNT (AUTO) 8.1 K/uL (4.8-10.8)
[2020-06-22 23:09] LABS: INR 1.38 (0.85-1.15); PROTHROMBIN TIME 14.3 SEC (9.6-11.6)
[2020-06-22 23:10] LABS: PARTIAL THROMBOPLASTIN TIME 35.4 SEC (26.3-35.5)
[2020-06-22 23:16] LABS: ALBUMIN 3.3 g/dL (3.5-5.0); BILIRUBIN,TOTAL 0.9 mg/dL (0.2-1.0); MAGNESIUM 2.8 mg/dL (1.80-2.40); POTASSIUM 4.1 mmol/L (3.5-5.1)
[2020-06-22 23:25] LABS: CREATININE 0.6 mg/dL (0.5-1.5)
[2020-06-22] MEDS ORDERED: IOHEXOL-350 75 ML VIAL IV ONE (23:31)
[2020-06-23 00:30] LABS: APPEARANCE,URINE Clear (CLEAR); BILIRUBIN,URINE Negative (NEGATIVE); COLOR,URINE Yellow (YELLOW); GLUCOSE, URINE (UA) Negative (NEGATIVE); KETONES,URINE Negative (NEGATIVE); LEUKOCYTE ESTERASE ,URINE Negative (NEGATIVE); NITRATE,URINE Negative (NEGATIVE); OCCULT BLOOD,URINE Negative (NEGATIVE); PH,URINE 7.5 (5.0-8.0); PROTEIN,URINE Negative (NEGATIVE)
== END 2020-06-24 01:56 | disposition home or self-care (01) ==
LOC: EDH 22:26
DX: E86.0 Dehydration (principal); K74.69 Other cirrhosis of liver; Z20.828 Contact with and (suspected) exposure to other viral communicable diseases; F41.9 Anxiety disorder, unspecified; F32.9 Major depressive disorder, single episode, unspecified; E11.9 Type 2 diabetes mellitus without complications; I10 Essential (primary) hypertension
CPT/HCPCS: 36415; 71045; 74177; 80053; 81003; 82140; 82150; 82550; 83605; 83690; 83735; 84484; 85025; 85610; 85730; 86900; 86901; 87426; 93005; 96361; 96374; 96375; 99285; C9113; J7030; Q9967; U0003

== ENCOUNTER 2020-07-08 17:02 | Inpatient (IN) | payer OTHER ==
[~2020-07-08] VITALS: Ht 177.8 cm; Wt 96.2 kg
[~2020-07-08 17:02] MED LIST changes: -LISI10TA24 PO; +LISI10TA7 PO; +MULT1TAB66 PO; -MULT1TAB67 PO
[2020-07-08] MEDS ORDERED: SODIUM CHLORIDE 0.9% 1000ML 1,000 ML IV ONE ×2 (17:45→21:52)
[2020-07-08] MEDS ORDERED: IOHEXOL 350 MG/ML 100ML INFUS..BTL IV ONE (17:57)
[2020-07-08 18:24] LABS: BASOPHILS % (AUTO) 0.6 % (0.0-5.0); EOSINOPHILS % (AUTO) 0.2 % (0.0-8.0); HEMATOCRIT 34.2 % (42-54); LYMPHOCYTES % (AUTO) 8.1 % (21.0-51.0); MEAN CORPUSCULAR HEMOGLOBIN 32.1 pg (27.0-33.0); MEAN CORPUSCULAR HGB CONC 34.5 g/dL (32.0-36.0); MEAN CORPUSCULAR VOLUME 92.9 fL (79-99); MONOCYTES % (AUTO) 10.9 % (3.0-13.0); NEUTROPHILS % (AUTO) 79.8 % (40.0-77.0); PLATELET COUNT (AUTO) 179 K/uL (130-400); RED BLOOD CELL COUNT(AUTO) 3.68 MIL/uL (4.50-6.20); RED CELL DISTRIBUTION WIDTH 13.2 % (11.0-15.5); WHITE BLOOD COUNT (AUTO) 16.3 K/uL (4.8-10.8)
[2020-07-08 18:38] LABS: INR 1.42 (0.85-1.15); PROTHROMBIN TIME 14.7 SEC (9.6-11.6)
[2020-07-08 18:40] LABS: PARTIAL THROMBOPLASTIN TIME 38.4 SEC (26.3-35.5)
[2020-07-08 18:43] LABS: CARBON DIOXIDE 24 mmol/L (21-32); CHLORIDE 97 mmol/L (101-111); CREATININE 0.7 mg/dL (0.5-1.5); GLOMERULAR FILTR. RATE CALC 136 mL/min (>60); GLUCOSE,RANDOM 144 mg/dL (70-105); POTASSIUM 4.3 mmol/L (3.5-5.1); SODIUM SERUM 135 mmol/L (136-145); UREA NITROGEN, BLOOD 8 mg/dL (7-18)
[2020-07-08 18:53] LABS: ALANINE AMINOTRANSFERASE 30 U/L (12-78); ALBUMIN 3.2 g/dL (3.5-5.0); ASPARTATE AMINOTRANSFERASE 53 U/L (10-37); BILIRUBIN,TOTAL 0.5 mg/dL (0.2-1.0); CREATINE KINASE, TOTAL 114 U/L (21-232); MYOGLOBIN 19 ng/mL (10-92); TOTAL PROTEIN, SERUM 8.7 g/dL (6.0-8.3); TROPONIN I < 0.04 ng/mL (0.00-0.06)
[2020-07-08 18:56] LABS: ACETAMINOPHEN < 1 mcg/mL (10-29); ALCOHOL, BLOOD 111 mg/dL (0-10)
[2020-07-08] MEDS ORDERED: AZITHROMYCIN 500MG+NS 250ML 250 ML IV ONE (19:52)
[2020-07-08] MEDS ORDERED: CEFTRIAXONE SODIUM 1 GM ONE (19:53)
[2020-07-08] MEDS ORDERED: MORPHINE SULFATE 2 MG/ML 1ML SYG ONE ×2 (19:53→21:55)
[2020-07-08] MEDS ORDERED: PHYTONADIONE 10 MG/1 ML AMP ONE ×2 (20:35→20:41)
[2020-07-08] MEDS ORDERED: SODIUM CHLORIDE 0.9% 100 ML IV ONE (20:35)
[2020-07-08] MEDS ORDERED: THIAMINE HCL 100 MG/ML 2ML VIAL ONE ×3 (20:35→21:51)
[2020-07-08] MEDS ORDERED: FOLIC ACID 5 MG/ML 10 ML VIAL ONE (21:53)
[2020-07-08] MEDS ORDERED: M.V.I. IV [ADULT] 10 ML VIAL IV ONE (21:53)
[2020-07-08] MEDS ORDERED: LORAZEPAM 2 MG/ML 1 ML VIAL ONE (22:21)
[2020-07-08] MEDS ORDERED: ACETAMINOPHEN 325 MG TAB ONE (22:44)
[2020-07-08 23:37] VITALS: BP 163/84
[2020-07-08] MEDS ORDERED: ONDANSETRON HCL 4 MG/2 ML VIAL IVP PRN (23:45)
[2020-07-09] VITALS (7 sets, daily range): BP systolic 157–180; BP diastolic 93–103
[2020-07-09] MEDS ORDERED: ACETAMINOPHEN 325 MG TAB PO PRN
[2020-07-09] MEDS: AZITHROMYCIN 250 MG TABLET PO SCH
[2020-07-09] MEDS: CEFTRIAXONE SODIUM 1 GM IVP SCH
[2020-07-09] MEDS ORDERED: MORPHINE SULFATE 2 MG/ML 1ML SYG IVP PRN
[2020-07-09] MEDS ORDERED: LORAZEPAM 2 MG/ML 1 ML VIAL IVP PRN
[2020-07-09] MEDS ORDERED: ONDANSETRON HCL 4 MG/2 ML VIAL IVP PRN
[2020-07-09] MEDS: MORPHINE SULFATE 2 MG/ML 1ML SYG IVP PRN ×5 (00:10→21:20)
[2020-07-09] MEDS ORDERED: IPRATROPIUM/ALBUTEROL SULFATE 3 ML SOLUTION IH ONE (00:53)
[2020-07-09] MEDS: ACETAMINOPHEN 325 MG TAB PO PRN ×3 (01:41→19:20)
[2020-07-09 05:29] LABS: HEMATOCRIT 32.1 % (42-54); MEAN CORPUSCULAR HEMOGLOBIN 31.5 pg (27.0-33.0); MEAN CORPUSCULAR VOLUME 92.8 fL (79-99); RED BLOOD CELL COUNT(AUTO) 3.46 MIL/uL (4.50-6.20); RED CELL DISTRIBUTION WIDTH 12.9 % (11.0-15.5); WHITE BLOOD COUNT (AUTO) 12.2 K/uL (4.8-10.8)
[2020-07-09 05:52] LABS: ALBUMIN 2.8 g/dL (3.5-5.0); BILIRUBIN,TOTAL 0.9 mg/dL (0.2-1.0); CREATININE 0.6 mg/dL (0.5-1.5); MAGNESIUM 1.9 mg/dL (1.80-2.40); POTASSIUM 3.5 mmol/L (3.5-5.1); TOTAL PROTEIN, SERUM 7.7 g/dL (6.0-8.3)
[2020-07-09] MEDS ORDERED: VANCOMYCIN PROTOCOL PER PHARMACY IV SCH (06:30)
[2020-07-09] MEDS ORDERED: COMPOUND IV REFRIGERATED 1 EACH IVSOLN MISC PRN (06:45)
[2020-07-09] MEDS: IPRATROPIUM/ALBUTEROL SULFATE 3 ML SOLUTION IH SCH ×4 (07:08→18:25)
[2020-07-09] MEDS: VANCOMYCIN 1.25 GM in SODIUM CHLORIDE 0.9% 250 ML IV SCH ×2 (09:23→21:09)
[2020-07-09] MEDS ORDERED: LABETALOL 20 MG/4 ML DISP.SYRIN IV PRN (10:30)
[2020-07-09 11:53] LABS: APPEARANCE,URINE Clear (CLEAR); BILIRUBIN,URINE Negative (NEGATIVE); COLOR,URINE Yellow (YELLOW); GLUCOSE, URINE (UA) Negative (NEGATIVE); KETONES,URINE 15 mg/dL (NEGATIVE); LEUKOCYTE ESTERASE ,URINE Negative (NEGATIVE); NITRATE,URINE Negative (NEGATIVE); OCCULT BLOOD,URINE Negative (NEGATIVE); PH,URINE 7.5 (5.0-8.0); PROTEIN,URINE Negative (NEGATIVE); UROBILINOGEN,URINE 0.2 mg/dL (0.2-1.0)
[2020-07-10] MEDS: CEFTRIAXONE SODIUM 1 GM IVP SCH ×2 (00:17→23:30)
[2020-07-10] MEDS: AZITHROMYCIN 250 MG TABLET PO SCH ×2 (00:21→23:30)
[2020-07-10] MEDS: IPRATROPIUM/ALBUTEROL SULFATE 3 ML SOLUTION IH SCH ×5 (00:34→23:57)
[2020-07-10] MEDS: MORPHINE SULFATE 2 MG/ML 1ML SYG IVP PRN ×2 (01:29→18:55)
[2020-07-10 03:27] VITALS: BP 157/95
[2020-07-10 05:23] LABS: MEAN CORPUSCULAR HEMOGLOBIN 31.5 pg (27.0-33.0); MEAN CORPUSCULAR HGB CONC 34.2 g/dL (32.0-36.0); MEAN CORPUSCULAR VOLUME 91.9 fL (79-99); RED BLOOD CELL COUNT(AUTO) 3.59 MIL/uL (4.50-6.20); RED CELL DISTRIBUTION WIDTH 12.2 % (11.0-15.5); WHITE BLOOD COUNT (AUTO) 10.6 K/uL (4.8-10.8)
[2020-07-10 05:44] LABS: CREATININE 0.6 mg/dL (0.5-1.5); POTASSIUM 3.6 mmol/L (3.5-5.1)
[2020-07-10] MEDS: VANCOMYCIN 1.25 GM in SODIUM CHLORIDE 0.9% 250 ML IV SCH ×2 (06:32→18:49)
[2020-07-10 08:07] VITALS: BP 178/108
[2020-07-10] MEDS: SODIUM CHLORIDE 0.9% 1000ML 1,000 ML IV SCH ×2 (10:55→18:00)
[2020-07-10 11:10] VITALS: BP 153/96
[2020-07-10 16:09] VITALS: BP 152/101
[2020-07-10 19:46] VITALS: BP 153/91
[2020-07-10] MEDS: VANCOMYCIN 1.75 GM in SODIUM CHLORIDE 0.9% 250 ML IV SCH (20:00)
[2020-07-10 23:32] VITALS: BP 158/98
[2020-07-11 03:46] VITALS: BP 147/90
[2020-07-11] MEDS: SODIUM CHLORIDE 0.9% 1000ML 1,000 ML IV SCH ×2 (04:00→10:02)
[2020-07-11 06:08] LABS: BASOPHILS % (AUTO) 0.8 % (0.0-5.0); EOSINOPHILS % (AUTO) 2.6 % (0.0-8.0); HEMATOCRIT 34.5 % (42-54); LYMPHOCYTES % (AUTO) 27.4 % (21.0-51.0); MEAN CORPUSCULAR HEMOGLOBIN 31.1 pg (27.0-33.0); MEAN CORPUSCULAR HGB CONC 33.3 g/dL (32.0-36.0); MEAN CORPUSCULAR VOLUME 93.2 fL (79-99); MONOCYTES % (AUTO) 9.7 % (3.0-13.0); NEUTROPHILS % (AUTO) 59.2 % (40.0-77.0); PLATELET COUNT (AUTO) 173 K/uL (130-400); RED CELL DISTRIBUTION WIDTH 12.4 % (11.0-15.5); WHITE BLOOD COUNT (AUTO) 8.9 K/uL (4.8-10.8)
[2020-07-11 06:33] LABS: ALBUMIN 2.6 g/dL (3.5-5.0); BILIRUBIN,DIRECT 0.5 mg/dL (0.0-0.3); BILIRUBIN,TOTAL 1.1 mg/dL (0.2-1.0); CREATININE 0.7 mg/dL (0.5-1.5); MAGNESIUM 1.7 mg/dL (1.80-2.40); PHOSPHORUS 4.2 mg/dL (2.5-4.9); POTASSIUM 3.7 mmol/L (3.5-5.1); TOTAL PROTEIN, SERUM 8.2 g/dL (6.0-8.3)
[2020-07-11 08:01] VITALS: BP 159/92
[2020-07-11] MEDS ORDERED: AMYL1CAP66 PO (09:58)
[2020-07-11] MEDS ORDERED: PROM6.2514 PO (09:58)
[2020-07-11] MEDS ORDERED: ONDA4TAB10 PO (09:58)
[2020-07-11] MEDS: VANCOMYCIN 1.75 GM in SODIUM CHLORIDE 0.9% 250 ML IV SCH ×2 (10:00→21:02)
[2020-07-11] MEDS ORDERED: LACT10SO9 PO (10:04)
[2020-07-11] MEDS: MORPHINE SULFATE 2 MG/ML 1ML SYG IVP PRN ×3 (11:06→23:03)
[2020-07-11] MEDS ORDERED: IPRATROPIUM/ALBUTEROL SULFATE 3 ML SOLUTION IH PRN (11:30)
[2020-07-11 11:40] VITALS: BP 149/86
[2020-07-11] MEDS: ZOSYN 3.375GM+NS 50ML 50 ML IV SCH ×2 (16:13→20:11)
[2020-07-11 16:54] VITALS: BP 146/95
[2020-07-11] MEDS: LIPASE/PROTEASE/AMYLASE 5000/17000/24000 PO SCH (17:12)
[2020-07-11 20:11] VITALS: BP 158/98
[2020-07-11] MEDS: LACTULOSE 20 GM/30 ML UDCUP PO SCH (20:12)
[2020-07-11 23:37] VITALS: BP 166/97
[2020-07-12] VITALS (25 sets, daily range): BP systolic 129–168; BP diastolic 64–102
[2020-07-12] MEDS: AZITHROMYCIN 250 MG TABLET PO SCH ×2 (00:13→23:29)
[2020-07-12] MEDS: CEFTRIAXONE SODIUM 1 GM IVP SCH (00:13)
[2020-07-12] MEDS: SODIUM CHLORIDE 0.9% 1000ML 1,000 ML IV SCH ×3 (00:14→19:21)
[2020-07-12] MEDS: ZOSYN 3.375GM+NS 50ML 50 ML IV SCH ×3 (03:11→19:21)
[2020-07-12] MEDS: MORPHINE SULFATE 2 MG/ML 1ML SYG IVP PRN ×3 (03:16→23:29)
[2020-07-12 05:11] LABS: MEAN CORPUSCULAR HEMOGLOBIN 31.5 pg (27.0-33.0); MEAN CORPUSCULAR HGB CONC 33.9 g/dL (32.0-36.0); PLATELET COUNT (AUTO) 178 K/uL (130-400); RED BLOOD CELL COUNT(AUTO) 3.87 MIL/uL (4.50-6.20); RED CELL DISTRIBUTION WIDTH 12.4 % (11.0-15.5); WHITE BLOOD COUNT (AUTO) 9.4 K/uL (4.8-10.8)
[2020-07-12 05:24] LABS: INR 1.43 (0.85-1.15); PROTHROMBIN TIME 14.8 SEC (9.6-11.6)
[2020-07-12 05:25] LABS: PARTIAL THROMBOPLASTIN TIME 33.2 SEC (26.3-35.5)
[2020-07-12 05:37] LABS: ALBUMIN 2.7 g/dL (3.5-5.0); CREATININE 0.7 mg/dL (0.5-1.5); POTASSIUM 3.7 mmol/L (3.5-5.1); TOTAL PROTEIN, SERUM 8.3 g/dL (6.0-8.3)
[2020-07-12 05:59] LABS: BAND NEUTROPHILS % (MANUAL) 2 % (0-2); BASOPHILS % (MANUAL) 1 % (0-2); EOSINOPHILS % (MANUAL) 1 % (1-6); LYMPHOCYTES % (MANUAL) 12 % (22-44); MAN.DIFF COMMENT-IMPRESSION MANUAL DIFFERENTIAL; MONOCYTES % (MANUAL) 5 % (2-9); SEGMENTED NEUTROPHILS % 79 % (40-70)
[2020-07-12] MEDS: LIPASE/PROTEASE/AMYLASE 5000/17000/24000 PO SCH ×3 (06:35→17:00)
[2020-07-12] MEDS: PANTOPRAZOLE SODIUM 40 MG TABLET.DR PO SCH (09:00)
[2020-07-12] MEDS: MULTIVITAMIN TABLET PO SCH (09:00)
[2020-07-12] MEDS: LACTULOSE 20 GM/30 ML UDCUP PO SCH ×3 (09:00→19:21)
[2020-07-12] MEDS: FOLIC ACID 1 MG TABLET PO SCH (09:00)
[2020-07-12] MEDS: THIAMINE HCL 100 MG TABLET PO SCH (09:00)
[2020-07-12] MEDS: LISINOPRIL 5 MG TABLET PO SCH (09:46)
[2020-07-12] MEDS ORDERED: DEXAMETHASONE SOD PHOSPHATE 10MG/ML 1ML VIAL ONE (10:35)
[2020-07-12] MEDS ORDERED: SUCCINYLCHOLINE CHLORIDE 20 MG/ML 10 ML VIAL ONE (10:35)
[2020-07-12] MEDS ORDERED: LIDOCAINE PF 2% 5ML ABBOJECT ONE (10:35)
[2020-07-12] MEDS ORDERED: GLYCOPYRROLATE 1 MG/5 ML SYRINGE ONE (10:37)
[2020-07-12] MEDS ORDERED: BUPIVACAINE/PF 0.25% 30ML VIAL IJ ONE (10:37)
[2020-07-12] MEDS ORDERED: ONDANSETRON HCL 4 MG/2 ML VIAL ONE (10:37)
[2020-07-12] MEDS ORDERED: LIDOCAINE HCL 1% 20 ML VIAL ONE (10:37)
[2020-07-12] MEDS ORDERED: MIDAZOLAM HCL 1 MG/ML 2ML VIAL ONE (10:37)
[2020-07-12] MEDS ORDERED: NEOSTIGMINE 5MG/5ML SYR IV ONE (10:38)
[2020-07-12] MEDS ORDERED: PROPOFOL 10 MG/ML 20ML VIAL IV ONE (10:38)
[2020-07-12] MEDS ORDERED: ROCURONIUM 10MG/1ML SYR 10 MG/ML ML ONE (10:39)
[2020-07-12] MEDS ORDERED: FENTANYL CITRATE PF 50 MCG/1 ML 2ML VIAL ONE ×2 (10:39→14:53)
[2020-07-12] MEDS ORDERED: LACTATED RINGERS 1000ML 1,000 ML IV ONE ×2 (13:53→13:54)
[2020-07-12] MEDS ORDERED: EPHEDRINE SULFATE 50 MG/ML AMPULE ONE (15:02)
[2020-07-12] MEDS ORDERED: KETAMINE 50MG/ML SYRINGE 50 MG/ML DISP.SYRIN IV ONE (15:25)
[2020-07-12] MEDS ORDERED: MEPERIDINE-PF 25 MG/ML SYG ONE ×2 (16:02→16:13)
[2020-07-12] MEDS: VANCOMYCIN 1.25 GM in SODIUM CHLORIDE 0.9% 250 ML IV SCH (18:21)
[2020-07-13] MEDS: VANCOMYCIN 1.25 GM in SODIUM CHLORIDE 0.9% 250 ML IV SCH ×2 (01:24→11:00)
[2020-07-13] MEDS: ZOSYN 3.375GM+NS 50ML 50 ML IV SCH (03:07)
[2020-07-13] MEDS: MORPHINE SULFATE 2 MG/ML 1ML SYG IVP PRN (03:41)
[2020-07-13 04:07] VITALS: BP 162/84
[2020-07-13 05:39] LABS: BASOPHILS % (AUTO) 0.3 % (0.0-5.0); HEMATOCRIT 33.9 % (42-54); LYMPHOCYTES % (AUTO) 11.3 % (21.0-51.0); MEAN CORPUSCULAR HEMOGLOBIN 30.6 pg (27.0-33.0); MEAN CORPUSCULAR VOLUME 92.6 fL (79-99); MONOCYTES % (AUTO) 7.3 % (3.0-13.0); NEUTROPHILS % (AUTO) 80.4 % (40.0-77.0); PLATELET COUNT (AUTO) 195 K/uL (130-400); RED BLOOD CELL COUNT(AUTO) 3.66 MIL/uL (4.50-6.20); RED CELL DISTRIBUTION WIDTH 12.6 % (11.0-15.5); WHITE BLOOD COUNT (AUTO) 7.6 K/uL (4.8-10.8)
[2020-07-13 05:54] LABS: ALBUMIN 2.5 g/dL (3.5-5.0); BILIRUBIN,TOTAL 0.8 mg/dL (0.2-1.0); CREATININE 0.6 mg/dL (0.5-1.5); POTASSIUM 3.8 mmol/L (3.5-5.1); TOTAL PROTEIN, SERUM 7.8 g/dL (6.0-8.3)
[2020-07-13] MEDS: SODIUM CHLORIDE 0.9% 1000ML 1,000 ML IV SCH (06:07)
[2020-07-13] MEDS: LIPASE/PROTEASE/AMYLASE 5000/17000/24000 PO SCH ×2 (06:35→11:30)
[2020-07-13 08:00] VITALS: BP 156/94
[2020-07-13] MEDS: LISINOPRIL 5 MG TABLET PO SCH (10:55)
[2020-07-13] MEDS: THIAMINE HCL 100 MG TABLET PO SCH (10:55)
[2020-07-13] MEDS: PANTOPRAZOLE SODIUM 40 MG TABLET.DR PO SCH (10:55)
[2020-07-13] MEDS: MULTIVITAMIN TABLET PO SCH (10:55)
[2020-07-13] MEDS: LACTULOSE 20 GM/30 ML UDCUP PO SCH (10:56)
[2020-07-13] MEDS: FOLIC ACID 1 MG TABLET PO SCH (10:56)
[2020-07-13 11:38] VITALS: BP 146/87
[2020-07-13] MEDS ORDERED: ZOSYN 3.375GM+NS 50ML 50 ML IV SCH (14:00)
[2020-07-13] MEDS: ACETAMINOPHEN 325 MG TAB PO PRN (15:56)
[2020-07-13 16:34] VITALS: BP 153/89
== END 2020-07-13 18:40 | disposition home or self-care (01) | DRG 417 ==
LOC: EDH 17:02 → EDHIP 17:03 → 3AH 23:00
PROVIDERS: ADMIT Internal Medicine; ATTEND Internal Medicine
PROC: 0FT44ZZ Resection of Gallbladder, Percutaneous Endoscopic Approach (ICD-10-PCS; principal; 2020-07-12 14:30)
DX: K80.00 Calculus of gallbladder with acute cholecystitis without obstruction (principal); J18.9 Pneumonia, unspecified organism; D68.59 Other primary thrombophilia; K86.1 Other chronic pancreatitis; K74.60 Unspecified cirrhosis of liver; D69.6 Thrombocytopenia, unspecified; Z20.822 Contact with and (suspected) exposure to COVID-19; Y90.5 Blood alcohol level of 100-119 mg/100 ml; E11.42 Type 2 diabetes mellitus with diabetic polyneuropathy; E87.6 Hypokalemia; F10.229 Alcohol dependence with intoxication, unspecified; F32.9 Major depressive disorder, single episode, unspecified; F41.1 Generalized anxiety disorder; F43.10 Post-traumatic stress disorder, unspecified; I10 Essential (primary) hypertension; K75.9 Inflammatory liver disease, unspecified; K82.8 Other specified diseases of gallbladder; Z79.4 Long term (current) use of insulin; Z87.891 Personal history of nicotine dependence
CPT/HCPCS: 36415; 70450; 70486; 71045; 71110; 71260; 72125; 74177; 76705; 78226; 80048; 80053; 80076; 80202; 81003; 82140; 82550; 82948; 83605; 83735; 83874; 84100; 84145; 84484; 85025; 85027; 85610; 85730; 86850; 86900; 86901; 86923; 87040; 87088; 87426; 87804; 87880; 93005; 94640; 94664; A9537; G0378; J0330; J0456; J0696; J1100; J2001; J2060; J2175; J2250; J2405; J2543; J2704; J2710; J3010; J3370; J3411; J3430; J3490; J7030; J7050; J7120; Q9967; U0003

== ENCOUNTER 2020-08-25 21:53 | Observation (INO) | payer OTHER ==
[~2020-08-25 21:53] MED LIST changes: +AMYL1CAP66 PO; +LACT10SO9 PO; +LISI10TA24 PO; -LISI10TA7 PO; -ONDA-104 PO; +ONDA4TAB10 PO; +PROM6.2514 PO; -ZENPEP PO
[2020-08-25 22:16] LABS: BASOPHILS % (AUTO) 0.4 % (0.0-5.0); EOSINOPHILS % (AUTO) 0.3 % (0.0-8.0); HEMATOCRIT 33.1 % (42-54); LYMPHOCYTES % (AUTO) 46.3 % (21.0-51.0); MEAN CORPUSCULAR HEMOGLOBIN 30.4 pg (27.0-33.0); MEAN CORPUSCULAR HGB CONC 33.8 g/dL (32.0-36.0); MEAN CORPUSCULAR VOLUME 89.9 fL (79-99); MONOCYTES % (AUTO) 7.3 % (3.0-13.0); NEUTROPHILS % (AUTO) 45.6 % (40.0-77.0); PLATELET COUNT (AUTO) 111 K/uL (130-400); RED BLOOD CELL COUNT(AUTO) 3.68 MIL/uL (4.50-6.20); RED CELL DISTRIBUTION WIDTH 13.9 % (11.0-15.5); WHITE BLOOD COUNT (AUTO) 7.3 K/uL (4.8-10.8)
[2020-08-25 22:28] LABS: INR 1.34 (0.85-1.15); PROTHROMBIN TIME 14.2 SEC (9.6-11.6)
[2020-08-25 22:30] LABS: PARTIAL THROMBOPLASTIN TIME 33.9 SEC (26.3-35.5)
[2020-08-25 22:43] LABS: APPEARANCE,URINE Clear (CLEAR); BILIRUBIN,URINE Negative (NEGATIVE); COLOR,URINE Yellow (YELLOW); GLUCOSE, URINE (UA) Negative (NEGATIVE); KETONES,URINE Negative (NEGATIVE); LEUKOCYTE ESTERASE ,URINE Negative (NEGATIVE); NITRATE,URINE Negative (NEGATIVE); OCCULT BLOOD,URINE Negative (NEGATIVE); PROTEIN,URINE Negative (NEGATIVE)
[2020-08-25 22:44] LABS: CREATININE 0.6 mg/dL (0.5-1.5); POTASSIUM 3.9 mmol/L (3.5-5.1)
[2020-08-25 22:49] LABS: ALBUMIN 3.5 g/dL (3.5-5.0); BILIRUBIN,TOTAL 0.9 mg/dL (0.2-1.0); TOTAL PROTEIN, SERUM 8.9 g/dL (6.0-8.3)
[2020-08-25 22:50] LABS: AMPHET/METH SCREEN,URINE NEGATIVE (NEGATIVE); BARBITURATE SCREEN, URINE NEGATIVE (NEGATIVE); BENZODIAZEPINES SCREEN,URINE NEGATIVE (NEGATIVE); CANNABINOID SCREEN,URINE NEGATIVE (NEGATIVE); COCAINE SCREEN,URINE NEGATIVE (NEGATIVE); OPIATE SCREEN,URINE NEGATIVE (NEGATIVE); PHENCYCLIDINE SCREEN,URINE NEGATIVE (NEGATIVE)
[2020-08-25] MEDS ORDERED: IOHEXOL 350 MG/ML 100ML INFUS..BTL IV ONE (23:11)
[2020-08-25] MEDS ORDERED: ACETAMINOPHEN EXTRA STRENGTH 500 MG TABLET ONE (23:59)
[2020-08-26] MEDS ORDERED: THIAMINE HCL 100 MG/ML 2ML VIAL ONE (00:23)
[2020-08-26] MEDS ORDERED: FOLIC ACID 5 MG/ML 10 ML VIAL ONE (00:25)
[2020-08-26] MEDS ORDERED: M.V.I. IV [ADULT] 10 ML VIAL IV ONE (00:25)
[2020-08-26] MEDS ORDERED: SODIUM CHLORIDE 0.9% 1000ML 1,000 ML IV ONE (00:29)
[2020-08-26] MEDS ORDERED: ACETAMINOPHEN 325 MG TAB PO PRN (02:45)
[2020-08-26] MEDS ORDERED: ACETAMINOPHEN 325 MG TAB ONE ×2 (06:21→12:03)
[2020-08-26 06:29] LABS: BASOPHILS % (AUTO) 0.4 % (0.0-5.0); EOSINOPHILS % (AUTO) 0.6 % (0.0-8.0); HEMATOCRIT 31.6 % (42-54); LYMPHOCYTES % (AUTO) 48.1 % (21.0-51.0); MEAN CORPUSCULAR HEMOGLOBIN 30.8 pg (27.0-33.0); MEAN CORPUSCULAR HGB CONC 33.9 g/dL (32.0-36.0); MEAN CORPUSCULAR VOLUME 91.1 fL (79-99); MONOCYTES % (AUTO) 7.8 % (3.0-13.0); PLATELET COUNT (AUTO) 98 K/uL (130-400); RED BLOOD CELL COUNT(AUTO) 3.47 MIL/uL (4.50-6.20); RED CELL DISTRIBUTION WIDTH 14.2 % (11.0-15.5); WHITE BLOOD COUNT (AUTO) 6.7 K/uL (4.8-10.8)
[2020-08-26 06:43] LABS: ALBUMIN 3.3 g/dL (3.5-5.0); CREATININE 0.5 mg/dL (0.5-1.5); POTASSIUM 3.4 mmol/L (3.5-5.1); TOTAL PROTEIN, SERUM 8.5 g/dL (6.0-8.3)
== END 2020-08-26 16:12 | disposition home or self-care (01) ==
LOC: EDH 21:53 → EDHIP 21:54
PROVIDERS: ADMIT Internal Medicine; ATTEND Internal Medicine
DX: F10.229 Alcohol dependence with intoxication, unspecified (principal); D64.9 Anemia, unspecified; I25.119 Atherosclerotic heart disease of native coronary artery with unspecified angina pectoris; K74.60 Unspecified cirrhosis of liver; E11.9 Type 2 diabetes mellitus without complications; I10 Essential (primary) hypertension; F43.10 Post-traumatic stress disorder, unspecified; R29.6 Repeated falls; Z87.891 Personal history of nicotine dependence; Z79.899 Other long term (current) drug therapy
CPT/HCPCS: 36415 ×2; 70450; 71045; 71260; 72125; 74177; 80053 ×2; 80305; 81003; 82140; 82550; 83605; 83690; 85025 ×2; 85610; 85730; 86850; 86900; 86901; 87040 ×2; 99285; G0378 ×15; J3411; J3490; J7030; Q9967

== ENCOUNTER 2020-10-03 10:53 | Inpatient (IN) | payer MEDICAID, OTHER ==
[~2020-10-03] VITALS: Ht 177.8 cm; Wt 94.2 kg
[~2020-10-03 10:53] MED LIST changes: -METF-446 PO; -MULT1TAB66 PO; +MULT1TAB67 PO
[2020-10-03 11:45] LABS: BASOPHILS % (AUTO) 0.9 % (0.0-5.0); HEMATOCRIT 34.7 % (42-54); LYMPHOCYTES % (AUTO) 35.7 % (21.0-51.0); MEAN CORPUSCULAR HEMOGLOBIN 30.3 pg (27.0-33.0); MEAN CORPUSCULAR HGB CONC 34.3 g/dL (32.0-36.0); MEAN CORPUSCULAR VOLUME 88.3 fL (79-99); MONOCYTES % (AUTO) 10.2 % (3.0-13.0); NEUTROPHILS % (AUTO) 53.1 % (40.0-77.0); PLATELET COUNT (AUTO) 146 K/uL (130-400); RED BLOOD CELL COUNT(AUTO) 3.93 MIL/uL (4.50-6.20); RED CELL DISTRIBUTION WIDTH 14.7 % (11.0-15.5); WHITE BLOOD COUNT (AUTO) 7.7 K/uL (4.8-10.8)
[2020-10-03 11:49] LABS: APPEARANCE,URINE Clear (CLEAR); BILIRUBIN,URINE Negative (NEGATIVE); COLOR,URINE Yellow (YELLOW); GLUCOSE, URINE (UA) Negative (NEGATIVE); KETONES,URINE Negative (NEGATIVE); LEUKOCYTE ESTERASE ,URINE Negative (NEGATIVE); NITRATE,URINE Negative (NEGATIVE); OCCULT BLOOD,URINE Negative (NEGATIVE); PH,URINE 6.5 (5.0-8.0); PROTEIN,URINE Negative (NEGATIVE); UROBILINOGEN,URINE 0.2 mg/dL (0.2-1.0)
[2020-10-03 11:51] LABS: AMPHET/METH SCREEN,URINE NEGATIVE (NEGATIVE); BARBITURATE SCREEN, URINE NEGATIVE (NEGATIVE); BENZODIAZEPINES SCREEN,URINE NEGATIVE (NEGATIVE); CANNABINOID SCREEN,URINE NEGATIVE (NEGATIVE); COCAINE SCREEN,URINE NEGATIVE (NEGATIVE); OPIATE SCREEN,URINE NEGATIVE (NEGATIVE); PHENCYCLIDINE SCREEN,URINE NEGATIVE (NEGATIVE)
[2020-10-03 11:52] LABS: CARBON DIOXIDE 24 mmol/L (21-32); CHLORIDE 95 mmol/L (101-111); CREATININE 0.6 mg/dL (0.5-1.5); GLOMERULAR FILTR. RATE CALC 163 mL/min (>60); GLUCOSE,RANDOM 105 mg/dL (70-105); POTASSIUM 3.6 mmol/L (3.5-5.1); SODIUM SERUM 132 mmol/L (136-145); UREA NITROGEN, BLOOD 4 mg/dL (7-18)
[2020-10-03 11:58] LABS: ALANINE AMINOTRANSFERASE 59 U/L (12-78); ALBUMIN 3.9 g/dL (3.5-5.0); ASPARTATE AMINOTRANSFERASE 84 U/L (10-37); BILIRUBIN,TOTAL 0.7 mg/dL (0.2-1.0); TOTAL PROTEIN, SERUM 8.9 g/dL (6.0-8.3)
[2020-10-03 12:03] LABS: ACETAMINOPHEN < 1 mcg/mL (10-29); SALICYLATE < 2.8 mg/dL (2.8-20.0)
[2020-10-03] MEDS ORDERED: CYANOCOBALAMIN (VITAMIN B-12) 1000 MCG/ML 1ML VIAL IM SCH (13:45)
[2020-10-03] MEDS ORDERED: DEXTROSE 50%-WATER 50 ML DISP.SYRIN IV ONE (14:00)
[2020-10-03] MEDS ORDERED: M.V.I. IV [ADULT] 10 ML, THIAMINE HCL 100 MG, FOLIC ACID 1 MG in 0.9%NACL 1000ML 1,000 ML IV SCH (14:00)
[2020-10-03] MEDS ORDERED: DEXTROSE 5%-LACTATED RINGERS 1,000 ML IV ONE (17:54)
[2020-10-03] MEDS ORDERED: ONDANSETRON 4MG INJ ONE (18:08)
[2020-10-04] MEDS ORDERED: ONDANSETRON 4MG INJ ONE ×2 (01:51→08:16)
[2020-10-04] MEDS ORDERED: ACETAMINOPHEN 500 MG TABLET ONE (04:48)
[2020-10-04] MEDS ORDERED: DEXTROSE 5%-LACTATED RINGERS 1,000 ML IV ONE (08:18)
[2020-10-04] MEDS ORDERED: LORAZEPAM 2 MG/ML 1 ML VIAL ONE (08:41)
[2020-10-04] MEDS ORDERED: LORAZEPAM 2 MG/ML 1 ML VIAL IVP PRN ×3 (11:45→16:15)
[2020-10-04] MEDS: M.V.I. IV [ADULT] 10 ML, THIAMINE HCL 100 MG, FOLIC ACID 1 MG in 0.9%NACL 1000ML 1,000 ML IV SCH (12:00)
[2020-10-04 12:09] LABS: INR 1.38 (0.85-1.15); PROTHROMBIN TIME 14.6 SEC (9.6-11.6)
[2020-10-04 12:11] LABS: PARTIAL THROMBOPLASTIN TIME 33.4 SEC (26.3-35.5)
[2020-10-04] MEDS ORDERED: PANTOPRAZOLE 40 MG/VIAL ONE ×2 (13:15→13:25)
[2020-10-04] MEDS ORDERED: OCTREOTIDE ACETATE 100 MCG/ML AMP IVP SCH (15:15)
[2020-10-04] MEDS ORDERED: OCTREOTIDE 1,250 MCG /NS 250ML (DRIP) IV SCH ×2 (15:15)
[2020-10-04] MEDS ORDERED: CHLORDIAZEPOXIDE HCL 25 MG CAP PO PRN ×2 (16:15)
[2020-10-04] MEDS ORDERED: PHARMACY COMMUNICATION MISC PRN (16:15)
[2020-10-04] MEDS ORDERED: OCTREOTIDE ACETATE 100 MCG/ML AMP ONE (16:15)
[2020-10-04] MEDS ORDERED: CHLORDIAZEPOXIDE HCL 25 MG CAP ONE (16:21)
[2020-10-04] MEDS: INSULIN R PO SS1 SQ SCH ×2 (16:30→21:00)
[2020-10-04 19:54] LABS: HEMATOCRIT 36.2 % (42-54)
[2020-10-04 23:52] VITALS: BP 167/97
[2020-10-05] VITALS (16 sets, daily range): BP systolic 120–172; BP diastolic 69–95
[2020-10-05] MEDS: PANTOPRAZOLE 40 MG/VIAL IVP SCH ×3 (03:27→20:34)
[2020-10-05 05:42] LABS: HEMATOCRIT 36.7 % (42-54); MEAN CORPUSCULAR HEMOGLOBIN 30.4 pg (27.0-33.0); MEAN CORPUSCULAR HGB CONC 34.1 g/dL (32.0-36.0); MEAN CORPUSCULAR VOLUME 89.3 fL (79-99); RED BLOOD CELL COUNT(AUTO) 4.11 MIL/uL (4.50-6.20); RED CELL DISTRIBUTION WIDTH 14.2 % (11.0-15.5); WHITE BLOOD COUNT (AUTO) 8.4 K/uL (4.8-10.8)
[2020-10-05 05:53] LABS: ALBUMIN 3.6 g/dL (3.5-5.0); CREATININE 0.7 mg/dL (0.5-1.5); POTASSIUM 3.7 mmol/L (3.5-5.1); TOTAL PROTEIN, SERUM 8.8 g/dL (6.0-8.3)
[2020-10-05] MEDS: INSULIN R PO SS1 SQ SCH ×4 (07:30→20:11)
[2020-10-05] MEDS: LACTULOSE 20 GM/30 ML UDCUP PO SCH ×3 (09:00→20:34)
[2020-10-05] MEDS ORDERED: MELATONIN 10 MG PO SCH (09:00)
[2020-10-05] MEDS: THIAMINE HCL 100 MG/ML 2ML VIAL IVP SCH (10:06)
[2020-10-05 11:41] LABS: HEMATOCRIT 37.2 % (42-54)
[2020-10-05] MEDS ORDERED: PROPOFOL 10 MG/ML 20ML VIAL IV ONE (11:48)
[2020-10-05] MEDS ORDERED: LIDOCAINE HCL 1% 20 ML VIAL ONE (11:49)
[2020-10-05] MEDS ORDERED: PHARMACY COMMUNICATION MISC SCH (14:00)
[2020-10-05] MEDS: LIPASE/PROTEASE/AMYLASE 5000/17000/24000 PO SCH (14:06)
[2020-10-05] MEDS: MULTIVITAMIN TABLET PO SCH (14:06)
[2020-10-05] MEDS: PROPRANOLOL HCL 20 MG TAB PO SCH (14:06)
[2020-10-05] MEDS: FOLIC ACID 1 MG TABLET PO SCH (14:06)
[2020-10-05] MEDS: LISINOPRIL 5 MG TABLET PO SCH (14:07)
[2020-10-05] MEDS: M.V.I. IV [ADULT] 10 ML, THIAMINE HCL 100 MG, FOLIC ACID 1 MG in 0.9%NACL 1000ML 1,000 ML IV SCH (14:07)
[2020-10-05 19:34] LABS: HEMATOCRIT 34.8 % (42-54)
[2020-10-05] MEDS: MELATONIN 10 MG PO SCH (20:35)
[2020-10-05] MEDS: RISPERIDONE 1 MG TABLET PO SCH (20:35)
[2020-10-05] MEDS ORDERED: CHLORDIAZEPOXIDE HCL 25 MG CAP PO ONE (21:00)
[2020-10-06 04:26] VITALS: BP 150/91
[2020-10-06 05:03] LABS: HEMATOCRIT 34.1 % (42-54)
[2020-10-06] MEDS: INSULIN R PO SS1 SQ SCH ×4 (06:37→21:00)
[2020-10-06 07:30] VITALS: BP 152/92
[2020-10-06] MEDS: LACTULOSE 20 GM/30 ML UDCUP PO SCH ×3 (08:41→19:27)
[2020-10-06] MEDS: PANTOPRAZOLE 40 MG TAB DR PO SCH ×2 (08:41→17:28)
[2020-10-06] MEDS: LISINOPRIL 5 MG TABLET PO SCH (08:42)
[2020-10-06] MEDS: MULTIVITAMIN TABLET PO SCH (08:42)
[2020-10-06] MEDS: LIPASE/PROTEASE/AMYLASE 5000/17000/24000 PO SCH (08:42)
[2020-10-06] MEDS: FOLIC ACID 1 MG TABLET PO SCH (08:42)
[2020-10-06] MEDS: PROPRANOLOL HCL 20 MG TAB PO SCH (08:42)
[2020-10-06] MEDS: THIAMINE HCL 100 MG/ML 2ML VIAL IVP SCH (08:42)
[2020-10-06] MEDS: M.V.I. IV [ADULT] 10 ML, THIAMINE HCL 100 MG, FOLIC ACID 1 MG in 0.9%NACL 1000ML 1,000 ML IV SCH (09:09)
[2020-10-06 11:00] VITALS: BP 147/85
[2020-10-06 11:05] LABS: HEMATOCRIT 35.6 % (42-54)
[2020-10-06 15:39] VITALS: BP 178/96
[2020-10-06] MEDS: MELATONIN 10 MG PO SCH (19:27)
[2020-10-06] MEDS: RISPERIDONE 1 MG TABLET PO SCH (19:27)
[2020-10-06 20:12] VITALS: BP 143/82
[2020-10-06 23:32] VITALS: BP 130/82
[2020-10-07 04:10] VITALS: BP 123/73
[2020-10-07] MEDS: INSULIN R PO SS1 SQ SCH (05:40)
[2020-10-07 07:30] VITALS: BP 141/82
[2020-10-07] MEDS: PANTOPRAZOLE 40 MG TAB DR PO SCH (09:12)
[2020-10-07] MEDS: MULTIVITAMIN TABLET PO SCH (09:12)
[2020-10-07] MEDS: THIAMINE HCL 100 MG/ML 2ML VIAL IVP SCH (09:12)
[2020-10-07] MEDS: PROPRANOLOL HCL 20 MG TAB PO SCH (09:12)
[2020-10-07] MEDS: LACTULOSE 20 GM/30 ML UDCUP PO SCH (09:12)
[2020-10-07] MEDS: FOLIC ACID 1 MG TABLET PO SCH (09:12)
[2020-10-07] MEDS: LISINOPRIL 5 MG TABLET PO SCH (09:13)
== END 2020-10-07 11:45 | disposition home or self-care (01) | DRG 432 ==
LOC: EDH 10:53 → EDHIP 10-04 10:56 → UNDOADMIN 10-04 11:06 → 3DH 10-04 22:30
PROVIDERS: ADMIT Internal Medicine; ATTEND Internal Medicine
PROC: 06L38CZ Occlusion of Esophageal Vein with Extraluminal Device, Via Natural or Artificial Opening Endoscopic (ICD-10-PCS; principal; 2020-10-05)
DX: K70.30 Alcoholic cirrhosis of liver without ascites (principal); I85.11 Secondary esophageal varices with bleeding; F10.239 Alcohol dependence with withdrawal, unspecified; D68.9 Coagulation defect, unspecified; D62 Acute posthemorrhagic anemia; K76.6 Portal hypertension; F41.9 Anxiety disorder, unspecified; F32.9 Major depressive disorder, single episode, unspecified; E11.42 Type 2 diabetes mellitus with diabetic polyneuropathy; F43.10 Post-traumatic stress disorder, unspecified; I10 Essential (primary) hypertension; F10.229 Alcohol dependence with intoxication, unspecified; D73.1 Hypersplenism; E11.65 Type 2 diabetes mellitus with hyperglycemia; F10.26 Alcohol dependence with alcohol-induced persisting amnestic disorder; K29.00 Acute gastritis without bleeding; I25.10 Atherosclerotic heart disease of native coronary artery without angina pectoris; K27.9 Peptic ulcer, site unspecified, unspecified as acute or chronic, without hemorrhage or perforation; K31.89 Other diseases of stomach and duodenum; Z87.891 Personal history of nicotine dependence; Z83.3 Family history of diabetes mellitus; Z82.3 Family history of stroke; Z82.49 Family history of ischemic heart disease and other diseases of the circulatory system
CPT/HCPCS: 36415; 43244; 80053; 80305; 81003; 82948; 85014; 85018; 85025; 85027; 85610; 85730; 87426; 93005; A4606; C9113; C9803; G0378; G0481; J2060; J2354; J2405; J2704; J3411; J3420; J3490; J7030; J7050; J7070; U0003

== ENCOUNTER 2021-01-13 00:18 | Emergency (ER) | payer OTHER ==
[~2021-01-13] VITALS: Ht 175.3 cm; Wt 98.0 kg
[2021-01-13 00:55] LABS: BASOPHILS % (AUTO) 1.6 % (0.0-5.0); EOSINOPHILS % (AUTO) 0.9 % (0.0-8.0); HEMATOCRIT 36.4 % (42-54); LYMPHOCYTES % (AUTO) 37.5 % (21.0-51.0); MEAN CORPUSCULAR HGB CONC 33.5 g/dL (32.0-36.0); MEAN CORPUSCULAR VOLUME 92.4 fL (79-99); MONOCYTES % (AUTO) 11.3 % (3.0-13.0); NEUTROPHILS % (AUTO) 48.5 % (40.0-77.0); PLATELET COUNT (AUTO) 146 K/uL (130-400); RED BLOOD CELL COUNT(AUTO) 3.94 MIL/uL (4.50-6.20); WHITE BLOOD COUNT (AUTO) 5.7 K/uL (4.8-10.8)
[2021-01-13 01:02] LABS: CREATININE 0.7 mg/dL (0.5-1.5); POTASSIUM 4.2 mmol/L (3.5-5.1)
[2021-01-13 01:08] LABS: ALBUMIN 3.7 g/dL (3.5-5.0); BILIRUBIN,TOTAL 0.9 mg/dL (0.2-1.0); TOTAL PROTEIN, SERUM 9.3 g/dL (6.0-8.3)
[2021-01-13 02:53] VITALS: BP 140/76
[2021-01-13 05:32] VITALS: BP 126/71
[2021-01-13] MEDS ORDERED: 0.9%NACL 1000ML 1,000 ML IV SCH (07:00)
[2021-01-13 07:31] VITALS: BP 114/82
== END 2021-01-13 08:23 | disposition home or self-care (01) ==
LOC: EDH 01:19
DX: S00.03XA Contusion of scalp, initial encounter (principal); F10.129 Alcohol abuse with intoxication, unspecified; Z79.899 Other long term (current) drug therapy; W01.198A Fall on same level from slipping, tripping and stumbling with subsequent striking against other object, initial encounter; Y93.89 Activity, other specified; Y92.89 Other specified places as the place of occurrence of the external cause; Y99.8 Other external cause status
CPT/HCPCS: 36415; 70450; 72125; 80053; 85025; 96360

== ENCOUNTER 2021-02-07 04:58 | Inpatient (IN) | payer SELFPAY ==
[2021-02-07] VITALS (52 sets, daily range): BP systolic 79–177; BP diastolic 30–108
[~2021-02-07] VITALS: Ht 177.8 cm; Wt 87.2 kg
[2021-02-07] MEDS ORDERED: LORAZEPAM 2 MG/ML 1 ML VIAL ONE ×3 (05:28→07:17)
[2021-02-07] MEDS ORDERED: ACETAMINOPHEN 650 MG SUPPOSITORY RC ONE ×2 (05:33→18:00)
[2021-02-07] MEDS ORDERED: M.V.I. IV [ADULT] 10 ML, FOLIC ACID 1 MG, THIAMINE HCL 100 MG in 0.9%NACL 1000ML 1,000 ML IV SCH (05:34)
[2021-02-07] MEDS ORDERED: CEFEPIME HCL 2 GM VIAL IVP STA (05:34)
[2021-02-07 05:56] LABS: APPEARANCE,URINE Clear (CLEAR); BILIRUBIN,URINE Small (NEGATIVE); COLOR,URINE Dark Yellow (YELLOW); GLUCOSE, URINE (UA) Negative (NEGATIVE); KETONES,URINE >=80 mg/dL (NEGATIVE); LEUKOCYTE ESTERASE ,URINE Trace (NEGATIVE); NITRATE,URINE Negative (NEGATIVE); OCCULT BLOOD,URINE Negative (NEGATIVE); PROTEIN,URINE 300 mg/dL (NEGATIVE)
[2021-02-07 05:58] LABS: BASOPHILS % (AUTO) 0.7 % (0.0-5.0); EOSINOPHILS % (AUTO) 0.1 % (0.0-8.0); HEMATOCRIT 34.6 % (42-54); LYMPHOCYTES % (AUTO) 11.8 % (21.0-51.0); MEAN CORPUSCULAR HEMOGLOBIN 31.6 pg (27.0-33.0); MEAN CORPUSCULAR HGB CONC 34.1 g/dL (32.0-36.0); MEAN CORPUSCULAR VOLUME 92.8 fL (79-99); MONOCYTES % (AUTO) 15.2 % (3.0-13.0); NEUTROPHILS % (AUTO) 71.8 % (40.0-77.0); PLATELET COUNT (AUTO) 88 K/uL (130-400); RED BLOOD CELL COUNT(AUTO) 3.73 MIL/uL (4.50-6.20); RED CELL DISTRIBUTION WIDTH 15.9 % (11.0-15.5); WHITE BLOOD COUNT (AUTO) 6.9 K/uL (4.8-10.8)
[2021-02-07 05:59] LABS: CARBON DIOXIDE 21 mmol/L (21-32); CHLORIDE 93 mmol/L (101-111); CREATININE 1.1 mg/dL (0.5-1.5); GLOMERULAR FILTR. RATE CALC 81 mL/min (>60); GLUCOSE,RANDOM 164 mg/dL (70-105); POTASSIUM 3.9 mmol/L (3.5-5.1); SODIUM SERUM 131 mmol/L (136-145); UREA NITROGEN, BLOOD 16 mg/dL (7-18)
[2021-02-07] MEDS ORDERED: VANCOMYCIN 1G VIAL IVPB SCH (06:00)
[2021-02-07] MEDS ORDERED: 0.9% NACL 250ML IVPB SCH (06:00)
[2021-02-07] MEDS ORDERED: LACTATED RINGERS 1000ML 1,000 ML IV ONE (06:00)
[2021-02-07] MEDS ORDERED: LEVETIRACETAM 1,500 MG in 0.9%NACL 100ML 100 ML IV SCH (06:00)
[2021-02-07] MEDS ORDERED: LACTATED RINGERS IV ONE (06:00)
[2021-02-07] MEDS ORDERED: LACTATED RINGERS 1000ML 2,000 ML IV ONE (06:02)
[2021-02-07 06:03] LABS: AMPHET/METH SCREEN,URINE NEGATIVE (NEGATIVE); BARBITURATE SCREEN, URINE NEGATIVE (NEGATIVE); BENZODIAZEPINES SCREEN,URINE NEGATIVE (NEGATIVE); CANNABINOID SCREEN,URINE NEGATIVE (NEGATIVE); COCAINE SCREEN,URINE NEGATIVE (NEGATIVE); OPIATE SCREEN,URINE NEGATIVE (NEGATIVE); PHENCYCLIDINE SCREEN,URINE NEGATIVE (NEGATIVE)
[2021-02-07 06:03] LABS: ALANINE AMINOTRANSFERASE 66 U/L (12-78); ALBUMIN 3.8 g/dL (3.5-5.0); ALCOHOL, BLOOD < 3 mg/dL (0-10); ASPARTATE AMINOTRANSFERASE 117 U/L (10-37); BILIRUBIN,TOTAL 3.4 mg/dL (0.2-1.0); TOTAL PROTEIN, SERUM 9.5 g/dL (6.0-8.3)
[2021-02-07 06:04] LABS: BACTERIA,URINE Rare /HPF (None Seen); RBC,URINE 0-1 /HPF (0-1); SQUAMOUS EPITHELIAL CELL,UR 0-2 /HPF (0-2); WBC,URINE 0-1 /HPF (0-1)
[2021-02-07] MEDS ORDERED: LEVETIRACETAM 500 MG/5 ML SD VIAL IV ONE (06:04)
[2021-02-07] MEDS ORDERED: 0.9%NACL 100ML 100 ML ONE (06:05)
[2021-02-07] MEDS ORDERED: THIAMINE HCL 100 MG/ML 2ML VIAL ONE (06:09)
[2021-02-07 06:26] LABS: ABG BASE EXCESS -4.7 mmol/L (-2.0-3.0); ABG HCO3 18.9 mmol/L (21.0-28.0); ABG OXYGEN SATURATION 99.5 % (95.0-99.0); ABG PCO2 31 mmHg (35-48)
[2021-02-07] MEDS ORDERED: VANCOMYCIN KIT 250 ML IV SCH (06:30)
[2021-02-07] MEDS ORDERED: DEXAMETHASONE SOD PHOSPHATE 4 MG/ML 1ML VIAL IVP STA (06:49)
[2021-02-07] MEDS ORDERED: MANNITOL 25% 50ML VIAL ONE (06:49)
[2021-02-07] MEDS ORDERED: DEXAMETHASONE SOD PHOSPHATE 4 MG/ML 5ML VIAL ONE (06:54)
[2021-02-07] MEDS ORDERED: DEXAMETHASONE SOD PHOSPHATE 4 MG/ML 1ML VIAL IM SCH (07:00)
[2021-02-07] MEDS ORDERED: PROPOFOL 1000 MG/100 ML 100 ML IV ONE ×2 (07:16→13:30)
[2021-02-07] MEDS ORDERED: SUCCINYLCHOLINE CHLORIDE 20 MG/ML 10 ML VIAL ONE (07:16)
[2021-02-07] MEDS ORDERED: LIDOCAINE PF 100MG/5ML (2%) SYRINGE 5ML ONE (07:17)
[2021-02-07] MEDS ORDERED: GLYCOPYRROLATE 1 MG/5 ML SYRINGE ONE (07:17)
[2021-02-07] MEDS ORDERED: PROPOFOL 10 MG/ML 20ML VIAL IV ONE (07:17)
[2021-02-07] MEDS ORDERED: MIDAZOLAM HCL 1 MG/ML 2ML VIAL ONE (07:17)
[2021-02-07] MEDS ORDERED: NEOSTIGMINE 5MG/5ML SYR IV ONE (07:17)
[2021-02-07] MEDS ORDERED: ONDANSETRON 4MG INJ ONE (07:17)
[2021-02-07] MEDS ORDERED: DEXAMETHASONE SOD PHOSPHATE 10MG/ML 1ML VIAL ONE (07:17)
[2021-02-07] MEDS ORDERED: ROCURONIUM 10MG/1ML SYR 10 MG/ML ML ONE ×2 (07:18→08:28)
[2021-02-07] MEDS ORDERED: FENTANYL CITRATE PF 50 MCG/1 ML 2ML VIAL ONE ×2 (07:18→08:14)
[2021-02-07 07:23] LABS: INR 1.37 (0.85-1.15); PROTHROMBIN TIME 14.5 SEC (9.6-11.6)
[2021-02-07 07:24] LABS: PARTIAL THROMBOPLASTIN TIME 28.9 SEC (26.3-35.5)
[2021-02-07] MEDS ORDERED: BUPIVACAINE/EPI/PF 0.25% 30ML VIAL IJ ONE (07:35)
[2021-02-07] MEDS ORDERED: CEFAZOLIN SODIUM 1 GM VIAL ONE (07:35)
[2021-02-07] MEDS ORDERED: THROMBIN-JMI 20000 UNIT KIT TP ONE (07:36)
[2021-02-07] MEDS ORDERED: CEFAZOLIN SODIUM 1 GM VIAL IRRIG ONE (08:10)
[2021-02-07] MEDS ORDERED: FENTANYL CITRATE PF 50 MCG/1 ML 5ML AMP IV ONE ×2 (08:11→09:33)
[2021-02-07] MEDS ORDERED: ESMOLOL HCL 10 MG/ML 10 ML VIAL ONE (08:43)
[2021-02-07 09:02] LABS: ABG BASE EXCESS -2.2 mmol/L (-2.0-3.0); ABG PCO2 23 mmHg (35-48)
[2021-02-07] MEDS: MANNITOL 25% 50ML VIAL IV SCH (10:34)
[2021-02-07] MEDS ORDERED: SODIUM CHLORIDE 3% 500 ML IV STA (11:19)
[2021-02-07] MEDS ORDERED: MANNITOL 20% 500ML BAG 500 ML IV SCH (11:19)
[2021-02-07] MEDS ORDERED: NICARDIPINE IV PRN (11:30)
[2021-02-07] MEDS ORDERED: NACL 0.9% IV PRN (11:30)
[2021-02-07] MEDS ORDERED: MIDAZOLAM HCL 50 MG in 0.9%NACL 50ML 50 ML IV SCH (11:30)
[2021-02-07] MEDS ORDERED: LORAZEPAM 2 MG/ML 1 ML VIAL IVP PRN (11:30)
[2021-02-07] MEDS ORDERED: HYDRALAZINE 20MG/ML VIAL ONE (11:41)
[2021-02-07] MEDS ORDERED: NICARDIPINE 25MG INJ 100 MG in DEXTROSE 5%-WATER 60 ML IV SCH ×2 (12:00→18:00)
[2021-02-07] MEDS ORDERED: MIDAZOLAM HCL 1 MG/ML 2ML VIAL IVP SCH (12:00)
[2021-02-07] MEDS ORDERED: MIDAZOLAM 100MG-0.9% NS 100ML 100 ML IV SCH (12:00)
[2021-02-07 12:16] LABS: CREATININE 0.6 mg/dL (0.5-1.5)
[2021-02-07] MEDS: LEVETIRACETAM 1,000 MG in 0.9%NACL 100ML 100 ML IV SCH ×3 (12:18→22:25)
[2021-02-07] MEDS ORDERED: THIAMINE HCL 100 MG/ML 2ML VIAL IVP SCH (12:30)
[2021-02-07] MEDS ORDERED: MIDAZOLAM 100MG-0.9% NS 100ML 100 ML IV PRN (12:30)
[2021-02-07 12:46] LABS: ABG BASE EXCESS -2.2 mmol/L (-2.0-3.0); ABG OXYGEN SATURATION 99.7 % (95.0-99.0); ABG PCO2 32 mmHg (35-48)
[2021-02-07] MEDS ORDERED: NOREPINEPHRINE 8MG/NS 250 ML 250 ML IV ONE (12:57)
[2021-02-07] MEDS: CEFTRIAXONE 2GM VIAL IVP SCH (13:22)
[2021-02-07] MEDS ORDERED: PHARMACY COMMUNICATION MISC STA (13:29)
[2021-02-07 13:30] LABS: HEMATOCRIT 26.5 % (42-54); MEAN CORPUSCULAR HGB CONC 33.2 g/dL (32.0-36.0); MEAN CORPUSCULAR VOLUME 96.4 fL (79-99); RED BLOOD CELL COUNT(AUTO) 2.75 MIL/uL (4.50-6.20); RED CELL DISTRIBUTION WIDTH 16.1 % (11.0-15.5); WHITE BLOOD COUNT (AUTO) 8.2 K/uL (4.8-10.8)
[2021-02-07] MEDS ORDERED: NOREPINEPHRINE BITARTRATE 8 MG in DEXTROSE 5%-WATER 250 ML IV PRN (13:30)
[2021-02-07] MEDS: MIDAZOLAM 100MG-0.9% NS 100ML 100 ML IV SCH ×2 (14:15→16:51)
[2021-02-07 16:42] LABS: ABG BASE EXCESS -4.5 mmol/L (-2.0-3.0); ABG HCO3 19.6 mmol/L (21.0-28.0); ABG OXYGEN SATURATION 97.9 % (95.0-99.0); ABG PCO2 32 mmHg (35-48)
[2021-02-07] MEDS: FENTANYL 2500MCG+NS 250ML 250 ML IV PRN (16:47)
[2021-02-07] MEDS: PROPOFOL 1000 MG/100 ML 100 ML IV PRN ×2 (16:49→20:25)
[2021-02-07 17:53] LABS: CREATININE 0.8 mg/dL (0.5-1.5); POTASSIUM 4.1 mmol/L (3.5-5.1)
[2021-02-07] MEDS ORDERED: PROP20TA7 PO (17:58)
[2021-02-07] MEDS ORDERED: CHLORHEXIDINE GLUCONATE 473 ML MOUTHWASH MM SCH (18:00)
[2021-02-07] MEDS ORDERED: ONDANSETRON 4MG INJ IVP PRN (18:00)
[2021-02-07] MEDS ORDERED: ACETAMINOPHEN 325 MG TAB PO PRN (18:00)
[2021-02-07 18:08] LABS: ABG BASE EXCESS -2.8 mmol/L (-2.0-3.0); ABG HCO3 17.9 mmol/L (21.0-28.0); ABG OXYGEN SATURATION 98.8 % (95.0-99.0); ABG PCO2 23 mmHg (35-48)
[2021-02-07] MEDS: ARTIFICAL TEARS SOL 15 ML OU SCH ×2 (19:00→23:45)
[2021-02-07] MEDS: PANTOPRAZOLE 40 MG/VIAL IVP SCH (19:52)
[2021-02-07] MEDS: CHLORHEXIDINE GLUCONATE 473 ML MOUTHWASH MM SCH (19:52)
[2021-02-07 20:18] LABS: ABG BASE EXCESS -2.4 mmol/L (-2.0-3.0); ABG OXYGEN SATURATION 98.5 % (95.0-99.0); ABG PCO2 29 mmHg (35-48)
[2021-02-07] MEDS: SODIUM CHLORIDE 3% 500 ML IV PRN (20:26)
[2021-02-07 23:58] LABS: CREATININE 0.8 mg/dL (0.5-1.5); POTASSIUM 3.6 mmol/L (3.5-5.1)
[2021-02-08] VITALS (51 sets, daily range): BP systolic 103–168; BP diastolic 49–127
[2021-02-08] MEDS: PROPOFOL 1000 MG/100 ML 100 ML IV PRN ×3 (00:28→23:03)
[2021-02-08] MEDS: POTASSIUM CHLORIDE 20MEQ/100ML 100 ML IV PRN ×3 (00:35→23:33)
[2021-02-08] MEDS: CHLORHEXIDINE GLUCONATE 473 ML MOUTHWASH MM SCH ×4 (01:38→19:00)
[2021-02-08] MEDS ORDERED: DILTIAZEM 25MG INJ IVP ONE (02:05)
[2021-02-08] MEDS: MIDAZOLAM 100MG-0.9% NS 100ML 100 ML IV SCH ×2 (02:32→17:03)
[2021-02-08 02:42] LABS: ABG BASE EXCESS -3.3 mmol/L (-2.0-3.0); ABG HCO3 17.7 mmol/L (21.0-28.0); ABG PCO2 23 mmHg (35-48)
[2021-02-08 04:39] LABS: ABG BASE EXCESS -3.5 mmol/L (-2.0-3.0); ABG HCO3 19.6 mmol/L (21.0-28.0); ABG OXYGEN SATURATION 98.4 % (95.0-99.0); ABG PCO2 31 mmHg (35-48)
[2021-02-08] MEDS: LEVETIRACETAM 1,000 MG in 0.9%NACL 100ML 100 ML IV SCH ×2 (05:26→22:15)
[2021-02-08] MEDS: ARTIFICAL TEARS SOL 15 ML OU SCH ×2 (05:33→18:00)
[2021-02-08 05:52] LABS: MEAN CORPUSCULAR HEMOGLOBIN 31.8 pg (27.0-33.0); MEAN CORPUSCULAR HGB CONC 32.3 g/dL (32.0-36.0); MEAN CORPUSCULAR VOLUME 98.7 fL (79-99); RED BLOOD CELL COUNT(AUTO) 2.23 MIL/uL (4.50-6.20); RED CELL DISTRIBUTION WIDTH 16.7 % (11.0-15.5); WHITE BLOOD COUNT (AUTO) 7.9 K/uL (4.8-10.8)
[2021-02-08 06:05] LABS: ALBUMIN 2.9 g/dL (3.5-5.0); BILIRUBIN,TOTAL 1.9 mg/dL (0.2-1.0); CREATININE 0.8 mg/dL (0.5-1.5); MAGNESIUM 1.7 mg/dL (1.80-2.40); PHOSPHORUS 1.9 mg/dL (2.5-4.9); POTASSIUM 3.7 mmol/L (3.5-5.1)
[2021-02-08 06:08] LABS: INR 1.44 (0.85-1.15); PROTHROMBIN TIME 15.2 SEC (9.6-11.6)
[2021-02-08] MEDS: MAGNESIUM 2GM PREMIX 50ML 50 ML IV PRN (06:22)
[2021-02-08] MEDS: MANNITOL 25% 50ML VIAL IV SCH (07:00)
[2021-02-08] MEDS: SODIUM CHLORIDE 3% 500 ML IV PRN ×2 (07:16→22:40)
[2021-02-08] MEDS: PANTOPRAZOLE 40 MG/VIAL IVP SCH ×2 (08:23→21:56)
[2021-02-08] MEDS: THIAMINE HCL 100 MG/ML 2ML VIAL IVP SCH (08:23)
[2021-02-08] MEDS ORDERED: POTASSIUM PHOS 15 mMOL+NS250ML 250 ML IV PRN (08:30)
[2021-02-08] MEDS: M.V.I. IV [ADULT] 10 ML, FOLIC ACID 1 MG, THIAMINE HCL 100 MG in 0.9%NACL 1000ML 1,000 ML IV SCH (09:45)
[2021-02-08] MEDS ORDERED: 0.9% NACL 500ML IV.SOLN 500 ML IV ONE (10:19)
[2021-02-08] MEDS ORDERED: ROCURONIUM 10MG/1ML SYR 10 MG/ML ML ONE (10:38)
[2021-02-08] MEDS ORDERED: FENTANYL CITRATE PF 50 MCG/1 ML 5ML AMP IV ONE ×2 (10:38→13:21)
[2021-02-08 11:54] LABS: CREATININE 0.6 mg/dL (0.5-1.5); POTASSIUM 3.6 mmol/L (3.5-5.1)
[2021-02-08] MEDS ORDERED: NOREPINEPHRINE 8MG/NS 250 ML 250 ML IV ONE (11:55)
[2021-02-08] MEDS ORDERED: CEFAZOLIN SODIUM 1 GM VIAL ONE (12:03)
[2021-02-08] MEDS ORDERED: THROMBIN-JMI 20000 UNIT KIT TP ONE (12:03)
[2021-02-08] MEDS: CEFTRIAXONE 2GM VIAL IVP SCH (12:05)
[2021-02-08] MEDS ORDERED: GENTAMICIN 80 MG/NS 100 ML PB 100 ML IV ONE (13:03)
[2021-02-08] MEDS ORDERED: MANNITOL 20% 500ML BAG 500 ML IV ONE (13:07)
[2021-02-08] MEDS ORDERED: ESMOLOL HCL 10 MG/ML 10 ML VIAL ONE (13:23)
[2021-02-08] MEDS ORDERED: FENTANYL CITRATE PF 50 MCG/1 ML 2ML VIAL ONE (14:31)
[2021-02-08 15:56] LABS: HEMATOCRIT 23.4 % (42-54); MEAN CORPUSCULAR HEMOGLOBIN 31.5 pg (27.0-33.0); MEAN CORPUSCULAR HGB CONC 33.3 g/dL (32.0-36.0); MEAN CORPUSCULAR VOLUME 94.4 fL (79-99); PLATELET COUNT (AUTO) 104 K/uL (130-400); RED BLOOD CELL COUNT(AUTO) 2.48 MIL/uL (4.50-6.20); WHITE BLOOD COUNT (AUTO) 7.8 K/uL (4.8-10.8)
[2021-02-08 16:04] LABS: CREATININE 0.5 mg/dL (0.5-1.5); POTASSIUM 3.3 mmol/L (3.5-5.1)
[2021-02-08 16:08] LABS: INR 1.48 (0.85-1.15); PROTHROMBIN TIME 15.6 SEC (9.6-11.6)
[2021-02-08 16:09] LABS: PARTIAL THROMBOPLASTIN TIME 28.7 SEC (26.3-35.5)
[2021-02-08 16:14] LABS: ABG BASE EXCESS -3.8 mmol/L (-2.0-3.0); ABG HCO3 19.8 mmol/L (21.0-28.0); ABG PCO2 32 mmHg (35-48)
[2021-02-08 16:23] LABS: BAND NEUTROPHILS % (MANUAL) 12 % (0-2); LYMPHOCYTES % (MANUAL) 9 % (22-44); MONOCYTES % (MANUAL) 4 % (2-9); REACTIVE LYMPHOCYTES 2 % (0-0); SEGMENTED NEUTROPHILS % 73 % (40-70)
[2021-02-08 16:40] LABS: MAN.DIFF COMMENT-IMPRESSION MANUAL DIFFERENTIAL
[2021-02-08 16:44] LABS: PLATELET MORPHOLOGY COMMENT SLIGHTLY DECREASED
[2021-02-08] MEDS: FENTANYL 2500MCG+NS 250ML 250 ML IV PRN (17:01)
[2021-02-08] MEDS ORDERED: PHYTONADIONE 10 MG in 0.9%NACL 50ML 50 ML IVPB ONE (17:30)
[2021-02-08 23:28] LABS: CREATININE 0.6 mg/dL (0.5-1.5); POTASSIUM 3.5 mmol/L (3.5-5.1)
[2021-02-09] VITALS (65 sets, daily range): BP systolic 103–170; BP diastolic 44–126
[2021-02-09] MEDS: CHLORHEXIDINE GLUCONATE 473 ML MOUTHWASH MM SCH ×4 (00:57→17:33)
[2021-02-09] MEDS: ARTIFICAL TEARS SOL 15 ML OU SCH ×4 (00:57→17:33)
[2021-02-09] MEDS: SODIUM CHLORIDE 3% 500 ML IV PRN ×2 (03:42→10:23)
[2021-02-09] MEDS: MIDAZOLAM 100MG-0.9% NS 100ML 100 ML IV SCH ×2 (03:44→22:35)
[2021-02-09 04:21] LABS: MEAN CORPUSCULAR HEMOGLOBIN 30.8 pg (27.0-33.0); MEAN CORPUSCULAR HGB CONC 32.7 g/dL (32.0-36.0); MEAN CORPUSCULAR VOLUME 94.4 fL (79-99); RED BLOOD CELL COUNT(AUTO) 2.14 MIL/uL (4.50-6.20); RED CELL DISTRIBUTION WIDTH 19.9 % (11.0-15.5); WHITE BLOOD COUNT (AUTO) 6.7 K/uL (4.8-10.8)
[2021-02-09 04:21] LABS: ABG BASE EXCESS -2.5 mmol/L (-2.0-3.0); ABG HCO3 18.4 mmol/L (21.0-28.0); ABG OXYGEN SATURATION 98.8 % (95.0-99.0); ABG PCO2 23 mmHg (35-48)
[2021-02-09 04:37] LABS: ALBUMIN 2.5 g/dL (3.5-5.0); BILIRUBIN,TOTAL 1.2 mg/dL (0.2-1.0); CREATININE 0.6 mg/dL (0.5-1.5); MAGNESIUM 1.7 mg/dL (1.80-2.40); PHOSPHORUS 1.2 mg/dL (2.5-4.9); POTASSIUM 3.6 mmol/L (3.5-5.1)
[2021-02-09 04:38] LABS: HEMATOCRIT 20.2 % (42-54)
[2021-02-09] MEDS: POTASSIUM CHLORIDE 20MEQ/100ML 100 ML IV PRN ×4 (05:32→20:42)
[2021-02-09] MEDS: MAGNESIUM 2GM PREMIX 50ML 50 ML IV PRN (05:32)
[2021-02-09] MEDS: PROPOFOL 1000 MG/100 ML 100 ML IV PRN ×3 (05:39→20:36)
[2021-02-09] MEDS ORDERED: 0.9% NACL 250ML 250 ML ONE (06:19)
[2021-02-09] MEDS: LEVETIRACETAM 1,000 MG in 0.9%NACL 100ML 100 ML IV SCH ×3 (06:45→22:20)
[2021-02-09] MEDS: MANNITOL 25% 50ML VIAL IV SCH (07:00)
[2021-02-09] MEDS: M.V.I. IV [ADULT] 10 ML, FOLIC ACID 1 MG, THIAMINE HCL 100 MG in 0.9%NACL 1000ML 1,000 ML IV SCH (09:00)
[2021-02-09 10:00] LABS: POTASSIUM 3.6 mmol/L (3.5-5.1)
[2021-02-09 10:09] LABS: INR 1.43 (0.85-1.15); PROTHROMBIN TIME 15.1 SEC (9.6-11.6)
[2021-02-09 10:10] LABS: PARTIAL THROMBOPLASTIN TIME 25.4 SEC (26.3-35.5)
[2021-02-09] MEDS: CEFTRIAXONE 2GM VIAL IVP SCH (10:22)
[2021-02-09] MEDS: PANTOPRAZOLE 40 MG/VIAL IVP SCH ×2 (10:22→20:42)
[2021-02-09] MEDS: THIAMINE HCL 100 MG/ML 2ML VIAL IVP SCH (10:22)
[2021-02-09] MEDS ORDERED: CHLORDIAZEPOXIDE HCL 25 MG CAP PO PRN (16:00)
[2021-02-09 17:11] LABS: HEMATOCRIT 25.1 % (42-54); MEAN CORPUSCULAR HEMOGLOBIN 31.4 pg (27.0-33.0); MEAN CORPUSCULAR HGB CONC 32.7 g/dL (32.0-36.0); MEAN CORPUSCULAR VOLUME 96.2 fL (79-99); NUCLEATED RED BLOOD CELLS 0.4 % (0.0-0.19); RED BLOOD CELL COUNT(AUTO) 2.61 MIL/uL (4.50-6.20); RED CELL DISTRIBUTION WIDTH 20.4 % (11.0-15.5); WHITE BLOOD COUNT (AUTO) 7.5 K/uL (4.8-10.8)
[2021-02-09 17:21] LABS: CREATININE 0.6 mg/dL (0.5-1.5); POTASSIUM 3.3 mmol/L (3.5-5.1)
[2021-02-10] VITALS (77 sets, daily range): BP systolic 99–168; BP diastolic 51–103
[2021-02-10] MEDS: CHLORHEXIDINE GLUCONATE 473 ML MOUTHWASH MM SCH ×4 (00:43→19:00)
[2021-02-10] MEDS: ARTIFICAL TEARS SOL 15 ML OU SCH ×4 (00:43→18:14)
[2021-02-10 01:18] LABS: HEMATOCRIT 26.2 % (42-54); MEAN CORPUSCULAR HEMOGLOBIN 31.4 pg (27.0-33.0); MEAN CORPUSCULAR HGB CONC 32.4 g/dL (32.0-36.0); MEAN CORPUSCULAR VOLUME 96.7 fL (79-99); NUCLEATED RED BLOOD CELLS 0.7 % (0.0-0.19); RED BLOOD CELL COUNT(AUTO) 2.71 MIL/uL (4.50-6.20); RED CELL DISTRIBUTION WIDTH 20.7 % (11.0-15.5); WHITE BLOOD COUNT (AUTO) 7.3 K/uL (4.8-10.8)
[2021-02-10 01:32] LABS: ALBUMIN 2.5 g/dL (3.5-5.0); BILIRUBIN,TOTAL 1.3 mg/dL (0.2-1.0); CREATININE 0.7 mg/dL (0.5-1.5); INR 1.4 (0.85-1.15); POTASSIUM 3.3 mmol/L (3.5-5.1); PROTHROMBIN TIME 14.8 SEC (9.6-11.6); TOTAL PROTEIN, SERUM 6.2 g/dL (6.0-8.3)
[2021-02-10 01:33] LABS: PARTIAL THROMBOPLASTIN TIME 24.6 SEC (26.3-35.5)
[2021-02-10] MEDS: POTASSIUM CHLORIDE 20MEQ/100ML 100 ML IV PRN ×6 (02:02→18:54)
[2021-02-10] MEDS: PROPOFOL 1000 MG/100 ML 100 ML IV PRN ×3 (03:40→16:45)
[2021-02-10 04:38] LABS: ABG BASE EXCESS -7.3 mmol/L (-2.0-3.0); ABG HCO3 14.6 mmol/L (21.0-28.0); ABG OXYGEN SATURATION 93.9 % (95.0-99.0); ABG PCO2 21 mmHg (35-48)
[2021-02-10] MEDS: LEVETIRACETAM 1,000 MG in 0.9%NACL 100ML 100 ML IV SCH ×3 (06:17→21:27)
[2021-02-10] MEDS: FENTANYL 2500MCG+NS 250ML 250 ML IV PRN (06:17)
[2021-02-10] MEDS ORDERED: 0.9% NACL 500ML IV.SOLN 500 ML IV ONE (06:49)
[2021-02-10 07:12] LABS: CREATININE 0.7 mg/dL (0.5-1.5); POTASSIUM 3.3 mmol/L (3.5-5.1)
[2021-02-10] MEDS: THIAMINE HCL 100 MG/ML 2ML VIAL IVP SCH (08:13)
[2021-02-10] MEDS: PANTOPRAZOLE 40 MG/VIAL IVP SCH ×2 (08:13→20:57)
[2021-02-10] MEDS ORDERED: LORAZEPAM 2 MG/ML 1 ML VIAL IVP PRN ×2 (09:30)
[2021-02-10 09:59] LABS: PHOSPHORUS 2.3 mg/dL (2.5-4.9)
[2021-02-10] MEDS: M.V.I. IV [ADULT] 10 ML, FOLIC ACID 1 MG, THIAMINE HCL 100 MG in 0.9%NACL 1000ML 1,000 ML IV SCH (10:08)
[2021-02-10] MEDS: CEFTRIAXONE 2GM VIAL IVP SCH (10:37)
[2021-02-10] MEDS: METOPROLOL TARTRATE 1 MG/ML 5ML VIAL IV SCH ×3 (10:37→22:15)
[2021-02-10 11:47] LABS: HEMATOCRIT 28.8 % (42-54); MEAN CORPUSCULAR HEMOGLOBIN 31.3 pg (27.0-33.0); MEAN CORPUSCULAR HGB CONC 31.3 g/dL (32.0-36.0); NUCLEATED RED BLOOD CELLS 0.7 % (0.0-0.19); RED BLOOD CELL COUNT(AUTO) 2.88 MIL/uL (4.50-6.20); RED CELL DISTRIBUTION WIDTH 21.3 % (11.0-15.5)
[2021-02-10] MEDS ORDERED: VANCOMYCIN 1G VIAL IVPB SCH (12:30)
[2021-02-10] MEDS ORDERED: VANCOMYCIN PROTOCOL PER PHARMACY IV SCH (12:30)
[2021-02-10] MEDS: ZOSYN 3.375GM +NS 50ML IV SCH ×2 (13:29→20:57)
[2021-02-10] MEDS ORDERED: COMPOUND IV REFRIGERATED 1 EACH IVSOLN MISC PRN (13:30)
[2021-02-10] MEDS: VANCOMYCIN 1.5GM/NS 250ML IV SCH ×4 (14:09→21:05)
[2021-02-10 16:12] LABS: HEMATOCRIT 27.3 % (42-54); MEAN CORPUSCULAR HEMOGLOBIN 31.3 pg (27.0-33.0); MEAN CORPUSCULAR HGB CONC 31.9 g/dL (32.0-36.0); MEAN CORPUSCULAR VOLUME 98.2 fL (79-99); NUCLEATED RED BLOOD CELLS 0.7 % (0.0-0.19); RED BLOOD CELL COUNT(AUTO) 2.78 MIL/uL (4.50-6.20); RED CELL DISTRIBUTION WIDTH 20.8 % (11.0-15.5); WHITE BLOOD COUNT (AUTO) 6.8 K/uL (4.8-10.8)
[2021-02-10 16:21] LABS: CREATININE 0.7 mg/dL (0.5-1.5); POTASSIUM 3.4 mmol/L (3.5-5.1)
[2021-02-10] MEDS: ACETAMINOPHEN 650 MG/20.3 ML UDCUP NG PRN ×2 (16:26→23:47)
[2021-02-10] MEDS: MIDAZOLAM 100MG-0.9% NS 100ML 100 ML IV SCH (16:45)
[2021-02-10 16:55] LABS: INR 1.47 (0.85-1.15); PROTHROMBIN TIME 15.5 SEC (9.6-11.6)
[2021-02-10 16:56] LABS: PARTIAL THROMBOPLASTIN TIME 27.1 SEC (26.3-35.5)
[2021-02-10] MEDS: SODIUM CHLORIDE 3% 500 ML IV PRN (17:48)
[2021-02-10] MEDS: IPRATROPIUM 0.5 MG/2.5 ML INH IH SCH ×2 (18:32→23:46)
[2021-02-10 20:15] LABS: CREATININE 0.8 mg/dL (0.5-1.5); POTASSIUM 4.6 mmol/L (3.5-5.1)
[2021-02-10] MEDS: CHLORDIAZEPOXIDE HCL 25 MG CAP PO SCH (20:57)
[2021-02-10] MEDS: METOPROLOL TARTRATE 25 MG TAB PO SCH (20:57)
[2021-02-10] MEDS: MANNITOL 25% 50ML VIAL IV SCH (21:27)
[2021-02-11] VITALS (25 sets, daily range): BP systolic 67–171; BP diastolic 19–124
[2021-02-11 00:04] LABS: HEMATOCRIT 26.9 % (42-54); MEAN CORPUSCULAR HEMOGLOBIN 31.6 pg (27.0-33.0); MEAN CORPUSCULAR HGB CONC 31.6 g/dL (32.0-36.0); NUCLEATED RED BLOOD CELLS 0.7 % (0.0-0.19); RED BLOOD CELL COUNT(AUTO) 2.69 MIL/uL (4.50-6.20); RED CELL DISTRIBUTION WIDTH 20.8 % (11.0-15.5); WHITE BLOOD COUNT (AUTO) 6.8 K/uL (4.8-10.8)
[2021-02-11] MEDS: FENTANYL 2500MCG+NS 250ML 250 ML IV PRN ×2 (00:56→22:28)
[2021-02-11] MEDS: CHLORHEXIDINE GLUCONATE 473 ML MOUTHWASH MM SCH ×4 (01:00→16:47)
[2021-02-11] MEDS: PROPOFOL 1000 MG/100 ML 100 ML IV PRN ×2 (02:02→20:04)
[2021-02-11 02:17] LABS: HEMATOCRIT 25.4 % (42-54); MEAN CORPUSCULAR HEMOGLOBIN 31.6 pg (27.0-33.0); MEAN CORPUSCULAR HGB CONC 31.9 g/dL (32.0-36.0); MEAN CORPUSCULAR VOLUME 99.2 fL (79-99); NUCLEATED RED BLOOD CELLS 0.8 % (0.0-0.19); RED BLOOD CELL COUNT(AUTO) 2.56 MIL/uL (4.50-6.20); RED CELL DISTRIBUTION WIDTH 20.8 % (11.0-15.5); WHITE BLOOD COUNT (AUTO) 6.6 K/uL (4.8-10.8)
[2021-02-11 02:24] LABS: CREATININE 0.8 mg/dL (0.5-1.5); POTASSIUM 3.3 mmol/L (3.5-5.1)
[2021-02-11 02:34] LABS: INR 1.48 (0.85-1.15); PROTHROMBIN TIME 15.6 SEC (9.6-11.6)
[2021-02-11 02:35] LABS: PARTIAL THROMBOPLASTIN TIME 28.8 SEC (26.3-35.5)
[2021-02-11] MEDS: POTASSIUM CHLORIDE 20MEQ/100ML 100 ML IV PRN ×4 (03:31→21:43)
[2021-02-11] MEDS: METOPROLOL TARTRATE 1 MG/ML 5ML VIAL IV SCH ×4 (04:00→22:00)
[2021-02-11] MEDS: ZOSYN 3.375GM +NS 50ML IV SCH ×3 (05:20→21:40)
[2021-02-11] MEDS: MIDAZOLAM 100MG-0.9% NS 100ML 100 ML IV SCH (05:31)
[2021-02-11] MEDS: ARTIFICAL TEARS SOL 15 ML OU SCH ×5 (06:00→23:35)
[2021-02-11] MEDS: LEVETIRACETAM 1,000 MG in 0.9%NACL 100ML 100 ML IV SCH ×3 (06:17→23:00)
[2021-02-11] MEDS: IPRATROPIUM 0.5 MG/2.5 ML INH IH SCH ×3 (06:59→18:42)
[2021-02-11 08:42] LABS: CREATININE 0.8 mg/dL (0.5-1.5); POTASSIUM 3.8 mmol/L (3.5-5.1)
[2021-02-11] MEDS: M.V.I. IV [ADULT] 10 ML, FOLIC ACID 1 MG, THIAMINE HCL 100 MG in 0.9%NACL 1000ML 1,000 ML IV SCH (09:00)
[2021-02-11] MEDS: METOPROLOL TARTRATE 25 MG TAB PO SCH ×2 (09:43→21:41)
[2021-02-11] MEDS: CHLORDIAZEPOXIDE HCL 25 MG CAP PO SCH ×2 (09:43→21:41)
[2021-02-11] MEDS: VANCOMYCIN 1.5GM/NS 250ML IV SCH ×4 (11:28→21:40)
[2021-02-11] MEDS: PHYTONADIONE 10 MG in 0.9%NACL 50ML 50 ML IVPB SCH ×2 (11:28→14:05)
[2021-02-11] MEDS: MANNITOL 25% 50ML VIAL IV SCH (11:29)
[2021-02-11 11:30] LABS: HEMATOCRIT 29.1 % (42-54); MEAN CORPUSCULAR HEMOGLOBIN 31.6 pg (27.0-33.0); NUCLEATED RED BLOOD CELLS 0.4 % (0.0-0.19); RED BLOOD CELL COUNT(AUTO) 2.94 MIL/uL (4.50-6.20); RED CELL DISTRIBUTION WIDTH 20.6 % (11.0-15.5); WHITE BLOOD COUNT (AUTO) 10.9 K/uL (4.8-10.8)
[2021-02-11] MEDS ORDERED: 0.9% NACL 500ML IV.SOLN 500 ML IV ONE ×2 (12:19→22:24)
[2021-02-11] MEDS ORDERED: FUROSEMIDE 40MG VIAL IV SCH ×2 (12:30→21:30)
[2021-02-11 12:49] LABS: ABG HCO3 18.5 mmol/L (21.0-28.0); ABG OXYGEN SATURATION 89.4 % (95.0-99.0); ABG PCO2 28 mmHg (35-48)
[2021-02-11] MEDS: PANTOPRAZOLE 40 MG/VIAL IVP SCH ×2 (14:04→21:40)
[2021-02-11] MEDS: THIAMINE HCL 100 MG/ML 2ML VIAL IVP SCH (14:05)
[2021-02-11 14:34] LABS: POTASSIUM 3.5 mmol/L (3.5-5.1)
[2021-02-11] MEDS ORDERED: PHARMACY COMMUNICATION MISC SCH (16:00)
[2021-02-11 17:12] LABS: HEMATOCRIT 27.6 % (42-54); MEAN CORPUSCULAR HEMOGLOBIN 31.3 pg (27.0-33.0); MEAN CORPUSCULAR HGB CONC 32.2 g/dL (32.0-36.0); MEAN CORPUSCULAR VOLUME 97.2 fL (79-99); RED BLOOD CELL COUNT(AUTO) 2.84 MIL/uL (4.50-6.20); RED CELL DISTRIBUTION WIDTH 20.2 % (11.0-15.5); WHITE BLOOD COUNT (AUTO) 9.3 K/uL (4.8-10.8)
[2021-02-11 17:22] LABS: INR 1.48 (0.85-1.15); PROTHROMBIN TIME 15.6 SEC (9.6-11.6)
[2021-02-11 17:24] LABS: PARTIAL THROMBOPLASTIN TIME 29.1 SEC (26.3-35.5)
[2021-02-11] MEDS: SODIUM CHLORIDE 3% 500 ML IV PRN (20:11)
[2021-02-11 20:14] LABS: CREATININE 0.7 mg/dL (0.5-1.5); MAGNESIUM 1.8 mg/dL (1.80-2.40); POTASSIUM 3.3 mmol/L (3.5-5.1)
[2021-02-11] MEDS: FUROSEMIDE 40MG VIAL IV SCH (21:41)
[2021-02-11 23:45] LABS: HEMATOCRIT 25.5 % (42-54); MEAN CORPUSCULAR HEMOGLOBIN 31.3 pg (27.0-33.0); MEAN CORPUSCULAR HGB CONC 32.5 g/dL (32.0-36.0); MEAN CORPUSCULAR VOLUME 96.2 fL (79-99); NUCLEATED RED BLOOD CELLS 0.3 % (0.0-0.19); RED BLOOD CELL COUNT(AUTO) 2.65 MIL/uL (4.50-6.20); RED CELL DISTRIBUTION WIDTH 19.9 % (11.0-15.5); WHITE BLOOD COUNT (AUTO) 8.8 K/uL (4.8-10.8)
[2021-02-12] VITALS (24 sets, daily range): BP systolic 100–298; BP diastolic 48–86
[2021-02-12] MEDS: POTASSIUM CHLORIDE 20MEQ/100ML 100 ML IV PRN ×4 (00:02→19:31)
[2021-02-12] MEDS: IPRATROPIUM 0.5 MG/2.5 ML INH IH SCH ×4 (00:13→18:14)
[2021-02-12] MEDS: CHLORHEXIDINE GLUCONATE 473 ML MOUTHWASH MM SCH ×4 (00:33→17:20)
[2021-02-12] MEDS: PROPOFOL 1000 MG/100 ML 100 ML IV PRN ×4 (00:50→22:55)
[2021-02-12] MEDS: FUROSEMIDE 40MG VIAL IV SCH ×4 (02:35→22:12)
[2021-02-12] MEDS: METOPROLOL TARTRATE 1 MG/ML 5ML VIAL IV SCH ×4 (02:36→20:51)
[2021-02-12] MEDS: ZOSYN 3.375GM +NS 50ML IV SCH ×3 (04:46→20:30)
[2021-02-12] MEDS: LEVETIRACETAM 1,000 MG in 0.9%NACL 100ML 100 ML IV SCH ×3 (05:01→22:00)
[2021-02-12] MEDS: ARTIFICAL TEARS SOL 15 ML OU SCH ×3 (05:36→17:20)
[2021-02-12 05:59] LABS: HEMATOCRIT 25.5 % (42-54); MEAN CORPUSCULAR HEMOGLOBIN 31.2 pg (27.0-33.0); MEAN CORPUSCULAR HGB CONC 32.2 g/dL (32.0-36.0); NUCLEATED RED BLOOD CELLS 0.6 % (0.0-0.19); RED BLOOD CELL COUNT(AUTO) 2.63 MIL/uL (4.50-6.20); RED CELL DISTRIBUTION WIDTH 19.6 % (11.0-15.5); WHITE BLOOD COUNT (AUTO) 7.1 K/uL (4.8-10.8)
[2021-02-12 06:14] LABS: INR 1.42 (0.85-1.15)
[2021-02-12 06:16] LABS: PARTIAL THROMBOPLASTIN TIME 28.6 SEC (26.3-35.5)
[2021-02-12 06:27] LABS: ALBUMIN 2.7 g/dL (3.5-5.0); BILIRUBIN,TOTAL 2.5 mg/dL (0.2-1.0); CREATININE 0.7 mg/dL (0.5-1.5); MAGNESIUM 1.7 mg/dL (1.80-2.40); PHOSPHORUS 2.6 mg/dL (2.5-4.9); TOTAL PROTEIN, SERUM 7.1 g/dL (6.0-8.3)
[2021-02-12] MEDS ORDERED: POTASSIUM CHLORIDE 10% ELIXIR 20 MEQ/15 ML UDCUP ONE (08:47)
[2021-02-12] MEDS: CHLORDIAZEPOXIDE HCL 25 MG CAP PO SCH (08:50)
[2021-02-12] MEDS: FOLIC ACID 1 MG TABLET PO SCH (08:51)
[2021-02-12] MEDS: PANTOPRAZOLE 40 MG/VIAL IVP SCH ×2 (08:51→20:29)
[2021-02-12] MEDS: METOPROLOL TARTRATE 25 MG TAB PO SCH ×2 (08:51→20:29)
[2021-02-12] MEDS: MULTIVITAMIN TABLET PO SCH (08:52)
[2021-02-12] MEDS: THIAMINE HCL 100 MG TABLET PO SCH (08:52)
[2021-02-12] MEDS: LIDOCAINE HCL-MPF 1% 2ML VIAL IV PRN ×2 (08:52→12:06)
[2021-02-12] MEDS: PHYTONADIONE 10 MG in 0.9%NACL 50ML 50 ML IVPB SCH (08:53)
[2021-02-12] MEDS: VANCOMYCIN 1.5GM/NS 250ML IV SCH ×6 (08:53→20:58)
[2021-02-12] MEDS: MAGNESIUM 2GM PREMIX 50ML 50 ML IV PRN (08:54)
[2021-02-12 09:12] LABS: CREATININE 0.8 mg/dL (0.5-1.5)
[2021-02-12 11:05] LABS: ABG BASE EXCESS -2.8 mmol/L (-2.0-3.0); ABG HCO3 21.3 mmol/L (21.0-28.0); ABG OXYGEN SATURATION 95.4 % (95.0-99.0); ABG PCO2 35 mmHg (35-48)
[2021-02-12] MEDS ORDERED: COMPOUND IV MISC 1 EACH IVSOLN MISC PRN (12:30)
[2021-02-12 17:14] LABS: INR 1.29 (0.85-1.15); PROTHROMBIN TIME 13.7 SEC (9.6-11.6)
[2021-02-12 17:15] LABS: PARTIAL THROMBOPLASTIN TIME 27.7 SEC (26.3-35.5)
[2021-02-12] MEDS: ACETAMINOPHEN 650 MG/20.3 ML UDCUP NG PRN (20:31)
[2021-02-13] VITALS (44 sets, daily range): BP systolic 107–165; BP diastolic 50–111
[2021-02-13] MEDS: IPRATROPIUM 0.5 MG/2.5 ML INH IH SCH ×5 (00:05→23:58)
[2021-02-13] MEDS: CHLORHEXIDINE GLUCONATE 473 ML MOUTHWASH MM SCH ×3 (00:10→13:28)
[2021-02-13] MEDS: METOPROLOL TARTRATE 1 MG/ML 5ML VIAL IV SCH ×2 (02:05→10:00)
[2021-02-13] MEDS: PROPOFOL 1000 MG/100 ML 100 ML IV PRN (03:36)
[2021-02-13] MEDS: ZOSYN 3.375GM +NS 50ML IV SCH ×3 (03:38→20:48)
[2021-02-13] MEDS: VANCOMYCIN 1.5GM/NS 250ML IV SCH ×6 (04:57→21:46)
[2021-02-13] MEDS: ARTIFICAL TEARS SOL 15 ML OU SCH ×4 (04:58→17:56)
[2021-02-13 05:14] LABS: BASOPHILS % (AUTO) 0.3 % (0.0-5.0); HEMATOCRIT 26.7 % (42-54); LYMPHOCYTES % (AUTO) 22.5 % (21.0-51.0); MEAN CORPUSCULAR HEMOGLOBIN 30.9 pg (27.0-33.0); MEAN CORPUSCULAR HGB CONC 32.2 g/dL (32.0-36.0); MONOCYTES % (AUTO) 21.8 % (3.0-13.0); NEUTROPHILS % (AUTO) 51.8 % (40.0-77.0); PLATELET COUNT (AUTO) 181 K/uL (130-400); RED BLOOD CELL COUNT(AUTO) 2.78 MIL/uL (4.50-6.20); RED CELL DISTRIBUTION WIDTH 19.1 % (11.0-15.5); WHITE BLOOD COUNT (AUTO) 6.8 K/uL (4.8-10.8)
[2021-02-13 05:24] LABS: BILIRUBIN,TOTAL 1.9 mg/dL (0.2-1.0); PHOSPHORUS 3.7 mg/dL (2.5-4.9); POTASSIUM 3.2 mmol/L (3.5-5.1)
[2021-02-13 05:25] LABS: ALBUMIN 2.7 g/dL (3.5-5.0); TOTAL PROTEIN, SERUM 7.5 g/dL (6.0-8.3)
[2021-02-13] MEDS: POTASSIUM CHLORIDE 20MEQ/100ML 100 ML IV PRN ×3 (05:41→10:46)
[2021-02-13] MEDS: LEVETIRACETAM 1,000 MG in 0.9%NACL 100ML 100 ML IV SCH ×3 (05:42→21:08)
[2021-02-13] MEDS: FUROSEMIDE 40MG VIAL IV SCH ×3 (06:26→20:48)
[2021-02-13 07:33] LABS: ABG BASE EXCESS -3.3 mmol/L (-2.0-3.0); ABG HCO3 17.1 mmol/L (21.0-28.0); ABG OXYGEN SATURATION 97.9 % (95.0-99.0); ABG PCO2 22 mmHg (35-48)
[2021-02-13] MEDS: MULTIVITAMIN TABLET PO SCH (07:42)
[2021-02-13] MEDS: METOPROLOL TARTRATE 25 MG TAB PO SCH ×2 (07:42→21:00)
[2021-02-13] MEDS: PANTOPRAZOLE 40 MG/VIAL IVP SCH ×2 (07:42→20:48)
[2021-02-13] MEDS: FOLIC ACID 1 MG TABLET PO SCH (07:42)
[2021-02-13] MEDS: THIAMINE HCL 100 MG TABLET PO SCH (07:42)
[2021-02-13 09:44] LABS: ABG BASE EXCESS -2.3 mmol/L (-2.0-3.0); ABG OXYGEN SATURATION 96.8 % (95.0-99.0); ABG PCO2 36 mmHg (35-48)
[2021-02-13] MEDS ORDERED: DEXAMETHASONE SOD PHOSPHATE 4 MG/ML 1ML VIAL IVP SCH (10:30)
[2021-02-13] MEDS ORDERED: METOPROLOL TARTRATE 1 MG/ML 5ML VIAL IV PRN (11:00)
[2021-02-13 12:01] LABS: ABG HCO3 21.3 mmol/L (21.0-28.0); ABG PCO2 33 mmHg (35-48)
[2021-02-13] MEDS ORDERED: MAG/ALUM/SIMETH 30 ML UDCUP PO PRN (17:00)
[2021-02-13] MEDS ORDERED: MORPHINE 2 MG SYG IVP PRN (17:00)
[2021-02-14] VITALS (24 sets, daily range): BP systolic 105–164; BP diastolic 50–83
[2021-02-14] MEDS: ZOSYN 3.375GM +NS 50ML IV SCH ×3 (05:13→21:13)
[2021-02-14 05:19] LABS: BASOPHILS % (AUTO) 0.3 % (0.0-5.0); EOSINOPHILS % (AUTO) 0.2 % (0.0-8.0); HEMATOCRIT 27.2 % (42-54); LYMPHOCYTES % (AUTO) 15.2 % (21.0-51.0); MEAN CORPUSCULAR HEMOGLOBIN 31.4 pg (27.0-33.0); MEAN CORPUSCULAR HGB CONC 32.4 g/dL (32.0-36.0); MEAN CORPUSCULAR VOLUME 97.1 fL (79-99); MONOCYTES % (AUTO) 18.5 % (3.0-13.0); NEUTROPHILS % (AUTO) 65.4 % (40.0-77.0); PLATELET COUNT (AUTO) 178 K/uL (130-400); RED CELL DISTRIBUTION WIDTH 18.3 % (11.0-15.5); WHITE BLOOD COUNT (AUTO) 9.7 K/uL (4.8-10.8)
[2021-02-14 05:31] LABS: ABG BASE EXCESS -0.8 mmol/L (-2.0-3.0); ABG HCO3 23.7 mmol/L (21.0-28.0); ABG OXYGEN SATURATION 96.5 % (95.0-99.0); ABG PCO2 39 mmHg (35-48)
[2021-02-14 05:32] LABS: INR 1.33 (0.85-1.15); PROTHROMBIN TIME 14.1 SEC (9.6-11.6)
[2021-02-14 05:36] LABS: ALBUMIN 2.7 g/dL (3.5-5.0); BILIRUBIN,TOTAL 1.6 mg/dL (0.2-1.0); CREATININE 0.7 mg/dL (0.5-1.5); PHOSPHORUS 4.3 mg/dL (2.5-4.9); POTASSIUM 3.5 mmol/L (3.5-5.1); TOTAL PROTEIN, SERUM 7.9 g/dL (6.0-8.3)
[2021-02-14] MEDS: FUROSEMIDE 40MG VIAL IV SCH ×3 (05:53→21:39)
[2021-02-14] MEDS: POTASSIUM CHLORIDE 20MEQ/100ML 100 ML IV PRN ×3 (05:53→23:00)
[2021-02-14] MEDS: LEVETIRACETAM 1,000 MG in 0.9%NACL 100ML 100 ML IV SCH ×3 (05:54→21:14)
[2021-02-14] MEDS: ARTIFICAL TEARS SOL 15 ML OU SCH ×5 (06:00→23:20)
[2021-02-14] MEDS: VANCOMYCIN 1.5GM/NS 250ML IV SCH ×6 (06:07→22:02)
[2021-02-14] MEDS: IPRATROPIUM 0.5 MG/2.5 ML INH IH SCH ×4 (06:39→23:59)
[2021-02-14] MEDS: FOLIC ACID 1 MG TABLET PO SCH (09:00)
[2021-02-14] MEDS: MULTIVITAMIN TABLET PO SCH (09:00)
[2021-02-14] MEDS: THIAMINE HCL 100 MG TABLET PO SCH (09:00)
[2021-02-14] MEDS: METOPROLOL TARTRATE 25 MG TAB PO SCH ×2 (09:00→21:00)
[2021-02-14] MEDS: PANTOPRAZOLE 40 MG/VIAL IVP SCH ×2 (09:02→21:13)
[2021-02-15] VITALS (12 sets, daily range): BP systolic 94–118; BP diastolic 52–73
[2021-02-15 04:19] LABS: HEMATOCRIT 34.5 % (42-54); MEAN CORPUSCULAR HEMOGLOBIN 31.1 pg (27.0-33.0); MEAN CORPUSCULAR HGB CONC 31.3 g/dL (32.0-36.0); MEAN CORPUSCULAR VOLUME 99.4 fL (79-99); RED BLOOD CELL COUNT(AUTO) 3.47 MIL/uL (4.50-6.20); RED CELL DISTRIBUTION WIDTH 17.9 % (11.0-15.5); WHITE BLOOD COUNT (AUTO) 11.6 K/uL (4.8-10.8)
[2021-02-15 04:20] LABS: MAGNESIUM 1.8 mg/dL (1.80-2.40); POTASSIUM 3.7 mmol/L (3.5-5.1)
[2021-02-15] MEDS: ZOSYN 3.375GM +NS 50ML IV SCH ×3 (05:13→20:49)
[2021-02-15] MEDS: FUROSEMIDE 40MG VIAL IV SCH ×3 (05:13→20:50)
[2021-02-15] MEDS: VANCOMYCIN 1.5GM/NS 250ML IV SCH ×2 (05:14)
[2021-02-15] MEDS: LEVETIRACETAM 1,000 MG in 0.9%NACL 100ML 100 ML IV SCH ×3 (05:14→22:02)
[2021-02-15] MEDS: ARTIFICAL TEARS SOL 15 ML OU SCH ×3 (05:14→18:07)
[2021-02-15] MEDS: MAGNESIUM 2GM PREMIX 50ML 50 ML IV PRN (05:47)
[2021-02-15] MEDS: IPRATROPIUM 0.5 MG/2.5 ML INH IH SCH ×4 (06:49→23:36)
[2021-02-15] MEDS ORDERED: LACTULOSE 20 GM/30 ML UDCUP PO PRN (08:00)
[2021-02-15] MEDS ORDERED: METOPROLOL TARTRATE 25 MG TAB ONE (08:05)
[2021-02-15] MEDS: PANTOPRAZOLE 40 MG/VIAL IVP SCH ×2 (08:38→20:49)
[2021-02-15] MEDS: FOLIC ACID 1 MG TABLET PO SCH (08:38)
[2021-02-15] MEDS: MULTIVITAMIN TABLET PO SCH (08:38)
[2021-02-15] MEDS: THIAMINE HCL 100 MG TABLET PO SCH (08:39)
[2021-02-15] MEDS: GUAIFENESIN-DM 200/20 MG 10 ML PO PRN ×4 (08:40→22:01)
[2021-02-16 03:53] VITALS: BP 112/69
[2021-02-16] MEDS: ZOSYN 3.375GM +NS 50ML IV SCH ×3 (04:54→21:04)
[2021-02-16] MEDS: FUROSEMIDE 40MG VIAL IV SCH ×3 (04:55→21:04)
[2021-02-16] MEDS: ARTIFICAL TEARS SOL 15 ML OU SCH ×4 (05:14→18:00)
[2021-02-16] MEDS: LEVETIRACETAM 1,000 MG in 0.9%NACL 100ML 100 ML IV SCH ×3 (06:41→21:03)
[2021-02-16] MEDS: IPRATROPIUM 0.5 MG/2.5 ML INH IH SCH ×4 (07:19→23:48)
[2021-02-16 08:00] VITALS: BP 110/70
[2021-02-16] MEDS: MULTIVITAMIN TABLET PO SCH (10:35)
[2021-02-16] MEDS: FOLIC ACID 1 MG TABLET PO SCH (10:35)
[2021-02-16] MEDS: THIAMINE HCL 100 MG TABLET PO SCH (10:35)
[2021-02-16] MEDS: GUAIFENESIN-DM 200/20 MG 10 ML PO PRN ×3 (10:43→21:03)
[2021-02-16 11:47] VITALS: BP 128/81
[2021-02-16] MEDS: PANTOPRAZOLE 40 MG/VIAL IVP SCH ×2 (12:53→21:03)
[2021-02-16 16:00] VITALS: BP 112/66
[2021-02-16 20:00] VITALS: BP 135/73
[2021-02-16 23:40] VITALS: BP 95/56
[2021-02-17 04:00] VITALS: BP 121/72
[2021-02-17] MEDS: FUROSEMIDE 40MG VIAL IV SCH ×3 (05:10→20:49)
[2021-02-17] MEDS: LEVETIRACETAM 1,000 MG in 0.9%NACL 100ML 100 ML IV SCH ×3 (05:10→23:34)
[2021-02-17] MEDS: ZOSYN 3.375GM +NS 50ML IV SCH ×3 (05:10→20:49)
[2021-02-17] MEDS: ARTIFICAL TEARS SOL 15 ML OU SCH ×5 (06:00→23:34)
[2021-02-17] MEDS: IPRATROPIUM 0.5 MG/2.5 ML INH IH SCH ×3 (06:46→18:18)
[2021-02-17 08:00] VITALS: BP 128/70
[2021-02-17] MEDS: GUAIFENESIN-DM 200/20 MG 10 ML PO PRN ×3 (08:57→20:50)
[2021-02-17] MEDS: MULTIVITAMIN TABLET PO SCH (08:57)
[2021-02-17] MEDS: FOLIC ACID 1 MG TABLET PO SCH (08:57)
[2021-02-17] MEDS: PANTOPRAZOLE 40 MG/VIAL IVP SCH ×2 (08:57→20:50)
[2021-02-17] MEDS: THIAMINE HCL 100 MG TABLET PO SCH (08:57)
[2021-02-17 12:00] VITALS: BP 116/73
[2021-02-17 16:22] VITALS: BP 116/86
[2021-02-17 20:15] VITALS: BP 140/88
[2021-02-17 23:46] VITALS: BP 118/74
[2021-02-18] MEDS: IPRATROPIUM 0.5 MG/2.5 ML INH IH SCH ×4 (00:24→19:00)
[2021-02-18] MEDS: GUAIFENESIN-DM 200/20 MG 10 ML PO PRN ×4 (00:56→21:28)
[2021-02-18 04:01] VITALS: BP 131/76
[2021-02-18 04:56] LABS: BASOPHILS % (AUTO) 0.9 % (0.0-5.0); EOSINOPHILS % (AUTO) 1.8 % (0.0-8.0); HEMATOCRIT 31.7 % (42-54); LYMPHOCYTES % (AUTO) 20.7 % (21.0-51.0); MEAN CORPUSCULAR HEMOGLOBIN 30.9 pg (27.0-33.0); MEAN CORPUSCULAR HGB CONC 32.5 g/dL (32.0-36.0); MEAN CORPUSCULAR VOLUME 95.2 fL (79-99); MONOCYTES % (AUTO) 10.2 % (3.0-13.0); NEUTROPHILS % (AUTO) 65.5 % (40.0-77.0); PLATELET COUNT (AUTO) 255 K/uL (130-400); RED BLOOD CELL COUNT(AUTO) 3.33 MIL/uL (4.50-6.20); RED CELL DISTRIBUTION WIDTH 17.2 % (11.0-15.5); WHITE BLOOD COUNT (AUTO) 11.8 K/uL (4.8-10.8)
[2021-02-18 05:15] LABS: INR 1.37 (0.85-1.15); PROTHROMBIN TIME 14.5 SEC (9.6-11.6)
[2021-02-18 05:16] LABS: PARTIAL THROMBOPLASTIN TIME 29.2 SEC (26.3-35.5)
[2021-02-18 05:19] LABS: CREATININE 0.7 mg/dL (0.5-1.5)
[2021-02-18] MEDS: ARTIFICAL TEARS SOL 15 ML OU SCH (05:50)
[2021-02-18] MEDS: ZOSYN 3.375GM +NS 50ML IV SCH ×3 (06:08→20:28)
[2021-02-18] MEDS: FUROSEMIDE 40MG VIAL IV SCH ×3 (06:08→20:28)
[2021-02-18] MEDS: POTASSIUM CHLORIDE 20MEQ/100ML 100 ML IV PRN (06:09)
[2021-02-18 08:00] VITALS: BP 110/70
[2021-02-18] MEDS: THIAMINE HCL 100 MG TABLET PO SCH (08:11)
[2021-02-18] MEDS: MULTIVITAMIN TABLET PO SCH (08:11)
[2021-02-18] MEDS: PANTOPRAZOLE 40 MG/VIAL IVP SCH ×2 (08:11→20:28)
[2021-02-18] MEDS: LEVETIRACETAM 1,000 MG in 0.9%NACL 100ML 100 ML IV SCH ×3 (08:11→22:00)
[2021-02-18] MEDS: FOLIC ACID 1 MG TABLET PO SCH (08:12)
[2021-02-18 12:00] VITALS: BP 112/76
[2021-02-18 16:00] VITALS: BP 94/58
[2021-02-18 19:14] LABS: MAGNESIUM 1.5 mg/dL (1.80-2.40); POTASSIUM 3.4 mmol/L (3.5-5.1)
[2021-02-18 19:59] VITALS: BP 142/83
[2021-02-18] MEDS: MAGNESIUM 2GM PREMIX 50ML 50 ML IV PRN (20:49)
[2021-02-18 23:46] VITALS: BP 125/74
[2021-02-19] MEDS: IPRATROPIUM 0.5 MG/2.5 ML INH IH SCH ×4 (00:34→19:06)
[2021-02-19] MEDS ORDERED: KCL 20 MEQ ERTAB PO ONE (01:20)
[2021-02-19] MEDS ORDERED: POTASSIUM CHLORIDE 10% ELIXIR 20 MEQ/15 ML UDCUP PO PRN (01:30)
[2021-02-19] MEDS ORDERED: LIDOCAINE HCL-MPF 1% 2ML VIAL IV PRN (01:30)
[2021-02-19] MEDS ORDERED: POTASSIUM CHLORIDE 20MEQ/100ML 100 ML IV PRN (01:30)
[2021-02-19 03:42] VITALS: BP 128/78
[2021-02-19] MEDS: KCL 20 MEQ ERTAB PO PRN ×4 (03:48→21:18)
[2021-02-19] MEDS: GUAIFENESIN-DM 200/20 MG 10 ML PO PRN ×3 (03:53→17:19)
[2021-02-19] MEDS: ZOSYN 3.375GM +NS 50ML IV SCH ×3 (05:11→21:05)
[2021-02-19] MEDS: FUROSEMIDE 40MG VIAL IV SCH ×3 (05:12→21:06)
[2021-02-19] MEDS: LEVETIRACETAM 1,000 MG in 0.9%NACL 100ML 100 ML IV SCH ×3 (06:18→22:04)
[2021-02-19 08:30] VITALS: BP 111/77
[2021-02-19] MEDS: FOLIC ACID 1 MG TABLET PO SCH (09:41)
[2021-02-19] MEDS: PANTOPRAZOLE 40 MG/VIAL IVP SCH ×2 (09:41→21:05)
[2021-02-19] MEDS: MULTIVITAMIN TABLET PO SCH (09:42)
[2021-02-19] MEDS: THIAMINE HCL 100 MG TABLET PO SCH (09:42)
[2021-02-19 09:52] LABS: CREATININE 0.7 mg/dL (0.5-1.5); MAGNESIUM 1.4 mg/dL (1.80-2.40); POTASSIUM 3.1 mmol/L (3.5-5.1)
[2021-02-19] MEDS: MAGNESIUM 2GM PREMIX 50ML 50 ML IV PRN (11:50)
[2021-02-19 12:01] VITALS: BP 110/64
[2021-02-19 16:53] VITALS: BP 99/59
[2021-02-19 20:22] VITALS: BP 115/76
[2021-02-19 23:22] VITALS: BP 111/67
[2021-02-20 03:49] VITALS: BP 112/74
[2021-02-20] MEDS: ZOSYN 3.375GM +NS 50ML IV SCH ×3 (06:29→21:01)
[2021-02-20] MEDS: LEVETIRACETAM 1,000 MG in 0.9%NACL 100ML 100 ML IV SCH ×3 (06:29→22:37)
[2021-02-20] MEDS: FUROSEMIDE 40MG VIAL IV SCH ×3 (06:43→20:55)
[2021-02-20] MEDS: GUAIFENESIN-DM 200/20 MG 10 ML PO PRN ×2 (06:43→20:53)
[2021-02-20 07:06] LABS: CREATININE 0.8 mg/dL (0.5-1.5); MAGNESIUM 1.6 mg/dL (1.80-2.40); POTASSIUM 4.1 mmol/L (3.5-5.1)
[2021-02-20 08:00] VITALS: BP 115/76
[2021-02-20] MEDS: THIAMINE HCL 100 MG TABLET PO SCH (08:52)
[2021-02-20] MEDS: PANTOPRAZOLE 40 MG/VIAL IVP SCH ×2 (08:52→20:53)
[2021-02-20] MEDS: FOLIC ACID 1 MG TABLET PO SCH (08:52)
[2021-02-20] MEDS: MULTIVITAMIN TABLET PO SCH (08:52)
[2021-02-20] MEDS: IPRATROPIUM 0.5 MG/2.5 ML INH IH SCH ×4 (11:24→23:18)
[2021-02-20 12:00] VITALS: BP 114/73
[2021-02-20 15:00] VITALS: BP 110/73
[2021-02-20 20:00] VITALS: BP 117/73
[2021-02-20 23:36] VITALS: BP 107/68
[2021-02-21 04:24] VITALS: BP 113/75
[2021-02-21 05:52] LABS: HEMATOCRIT 31.7 % (42-54); MEAN CORPUSCULAR HEMOGLOBIN 31.5 pg (27.0-33.0); MEAN CORPUSCULAR HGB CONC 33.1 g/dL (32.0-36.0); MEAN CORPUSCULAR VOLUME 95.2 fL (79-99); RED BLOOD CELL COUNT(AUTO) 3.33 MIL/uL (4.50-6.20); RED CELL DISTRIBUTION WIDTH 16.5 % (11.0-15.5)
[2021-02-21] MEDS: ZOSYN 3.375GM +NS 50ML IV SCH ×3 (06:05→20:27)
[2021-02-21] MEDS: LEVETIRACETAM 1,000 MG in 0.9%NACL 100ML 100 ML IV SCH ×3 (06:05→21:31)
[2021-02-21 06:12] LABS: CREATININE 0.9 mg/dL (0.5-1.5); MAGNESIUM 1.6 mg/dL (1.80-2.40); POTASSIUM 3.6 mmol/L (3.5-5.1)
[2021-02-21] MEDS: FUROSEMIDE 40MG VIAL IV SCH (06:12)
[2021-02-21] MEDS: MAGNESIUM 2GM PREMIX 50ML 50 ML IV PRN (06:52)
[2021-02-21] MEDS: IPRATROPIUM 0.5 MG/2.5 ML INH IH SCH ×3 (06:55→19:03)
[2021-02-21 08:03] VITALS: BP 111/70
[2021-02-21] MEDS: GUAIFENESIN-DM 200/20 MG 10 ML PO PRN ×2 (10:32→20:27)
[2021-02-21] MEDS: PANTOPRAZOLE 40 MG/VIAL IVP SCH ×2 (10:32→20:28)
[2021-02-21] MEDS: MULTIVITAMIN TABLET PO SCH (10:34)
[2021-02-21] MEDS: SPIRONOLACTONE 25 MG TAB PO SCH ×2 (10:34→20:27)
[2021-02-21] MEDS: THIAMINE HCL 100 MG TABLET PO SCH (10:34)
[2021-02-21] MEDS: FOLIC ACID 1 MG TABLET PO SCH (10:34)
[2021-02-21 11:45] VITALS: BP 116/78
[2021-02-21 15:30] VITALS: BP 127/67
[2021-02-21 20:00] VITALS: BP 104/73
[2021-02-22] VITALS: BP 117/74
[2021-02-22 04:00] VITALS: BP 92/69
[2021-02-22 04:59] LABS: HEMATOCRIT 31.5 % (42-54); MEAN CORPUSCULAR HGB CONC 32.1 g/dL (32.0-36.0); MEAN CORPUSCULAR VOLUME 96.6 fL (79-99); RED BLOOD CELL COUNT(AUTO) 3.26 MIL/uL (4.50-6.20); RED CELL DISTRIBUTION WIDTH 16.3 % (11.0-15.5); WHITE BLOOD COUNT (AUTO) 13.6 K/uL (4.8-10.8)
[2021-02-22 05:16] LABS: ALBUMIN 2.6 g/dL (3.5-5.0); BILIRUBIN,TOTAL 1.1 mg/dL (0.2-1.0); CREATININE 0.8 mg/dL (0.5-1.5); MAGNESIUM 1.7 mg/dL (1.80-2.40); POTASSIUM 3.9 mmol/L (3.5-5.1); TOTAL PROTEIN, SERUM 8.3 g/dL (6.0-8.3)
[2021-02-22] MEDS: LEVETIRACETAM 1,000 MG in 0.9%NACL 100ML 100 ML IV SCH ×3 (06:08→19:49)
[2021-02-22] MEDS: ZOSYN 3.375GM +NS 50ML IV SCH ×3 (06:08→19:48)
[2021-02-22] MEDS: IPRATROPIUM 0.5 MG/2.5 ML INH IH SCH ×4 (06:55→18:59)
[2021-02-22 08:02] VITALS: BP 111/69
[2021-02-22] MEDS ORDERED: FUROSEMIDE 40MG VIAL IV SCH (09:00)
[2021-02-22] MEDS: FOLIC ACID 1 MG TABLET PO SCH (10:09)
[2021-02-22] MEDS: THIAMINE HCL 100 MG TABLET PO SCH (10:09)
[2021-02-22] MEDS: MULTIVITAMIN TABLET PO SCH (10:10)
[2021-02-22] MEDS: PANTOPRAZOLE 40 MG/VIAL IVP SCH ×2 (10:10→19:49)
[2021-02-22] MEDS: SPIRONOLACTONE 25 MG TAB PO SCH ×2 (10:10→19:49)
[2021-02-22 11:20] VITALS: BP 109/74
[2021-02-22 15:19] VITALS: BP 123/62
[2021-02-22 19:53] VITALS: BP 127/80
[2021-02-22] MEDS ORDERED: ALTEPLASE 2MG VIAL 2 MG/VIAL VIAL IVCATH SCH (20:00)
[2021-02-22] MEDS: GUAIFENESIN-DM 200/20 MG 10 ML PO PRN (21:39)
[2021-02-23 00:06] VITALS: BP 127/70
[2021-02-23 03:50] VITALS: BP 102/66
[2021-02-23] MEDS: ZOSYN 3.375GM +NS 50ML IV SCH ×3 (04:05→20:45)
[2021-02-23] MEDS: LEVETIRACETAM 1,000 MG in 0.9%NACL 100ML 100 ML IV SCH (04:06)
[2021-02-23] MEDS: IPRATROPIUM 0.5 MG/2.5 ML INH IH SCH ×4 (06:00→18:56)
[2021-02-23 08:00] VITALS: BP 110/64
[2021-02-23] MEDS: GUAIFENESIN-DM 200/20 MG 10 ML PO PRN (11:27)
[2021-02-23] MEDS: PANTOPRAZOLE 40 MG/VIAL IVP SCH ×2 (11:27→20:45)
[2021-02-23] MEDS: THIAMINE HCL 100 MG TABLET PO SCH (11:28)
[2021-02-23] MEDS: FOLIC ACID 1 MG TABLET PO SCH (11:28)
[2021-02-23] MEDS: MULTIVITAMIN TABLET PO SCH (11:28)
[2021-02-23] MEDS: FUROSEMIDE 40 MG TABLET PO SCH (11:50)
[2021-02-23] MEDS: SPIRONOLACTONE 25 MG TAB PO SCH ×2 (11:50→20:45)
[2021-02-23] MEDS: LEVETIRACETAM 500 MG TABLET PO SCH ×2 (11:51→20:45)
[2021-02-23 12:00] VITALS: BP 111/56
[2021-02-23 19:07] VITALS: BP 124/74
[2021-02-23 20:00] VITALS: BP 124/73
[2021-02-24] VITALS: BP 138/79
[2021-02-24] MEDS: IPRATROPIUM 0.5 MG/2.5 ML INH IH SCH ×3 (00:20→11:29)
[2021-02-24] MEDS: GUAIFENESIN-DM 200/20 MG 10 ML PO PRN (01:29)
[2021-02-24] MEDS: LEVETIRACETAM 500 MG TABLET PO SCH (03:14)
[2021-02-24 03:52] LABS: HEMATOCRIT 32.1 % (42-54); MEAN CORPUSCULAR HGB CONC 32.1 g/dL (32.0-36.0); MEAN CORPUSCULAR VOLUME 96.7 fL (79-99); RED BLOOD CELL COUNT(AUTO) 3.32 MIL/uL (4.50-6.20); WHITE BLOOD COUNT (AUTO) 13.1 K/uL (4.8-10.8)
[2021-02-24 04:07] VITALS: BP 115/69
[2021-02-24 04:08] LABS: ALBUMIN 2.7 g/dL (3.5-5.0); BILIRUBIN,TOTAL 0.9 mg/dL (0.2-1.0); CREATININE 0.9 mg/dL (0.5-1.5); POTASSIUM 4.1 mmol/L (3.5-5.1); TOTAL PROTEIN, SERUM 8.5 g/dL (6.0-8.3)
[2021-02-24] MEDS: ZOSYN 3.375GM +NS 50ML IV SCH (04:30)
[2021-02-24 08:00] VITALS: BP 115/78
[2021-02-24] MEDS: PANTOPRAZOLE 40 MG/VIAL IVP SCH (11:34)
[2021-02-24] MEDS: FOLIC ACID 1 MG TABLET PO SCH (11:34)
[2021-02-24] MEDS: THIAMINE HCL 100 MG TABLET PO SCH (11:34)
[2021-02-24] MEDS: MULTIVITAMIN TABLET PO SCH (11:34)
[2021-02-24] MEDS: SPIRONOLACTONE 25 MG TAB PO SCH (11:35)
[2021-02-24] MEDS: FUROSEMIDE 40 MG TABLET PO SCH (11:35)
[2021-02-24] MEDS ORDERED: BALSAM PERU/CASTOR OIL 60 GM TUBE TP SCH (14:00)
== END 2021-02-24 12:45 | disposition home or self-care (01) | DRG 25 ==
LOC: EDH 04:58 → 2CH 04:59 → UNDOADMIN 11:00 → 4DH 02-15 13:02
PROVIDERS: ADMIT Internal Medicine; ATTEND Internal Medicine
PROC: 0BH17EZ Insertion of Endotracheal Airway into Trachea, Via Natural or Artificial Opening (ICD-10-PCS; 2021-02-07)
PROC: 00C40ZZ Extirpation of Matter from Intracranial Subdural Space, Open Approach (ICD-10-PCS; 2021-02-07)
PROC: 5A1955Z Respiratory Ventilation, Greater than 96 Consecutive Hours (ICD-10-PCS; 2021-02-07)
PROC: 02HV33Z Insertion of Infusion Device into Superior Vena Cava, Percutaneous Approach (ICD-10-PCS; principal; 2021-02-07 08:10)
PROC: 009400Z Drainage of Intracranial Subdural Space with Drainage Device, Open Approach (ICD-10-PCS; 2021-02-08)
PROC: 00C40ZZ Extirpation of Matter from Intracranial Subdural Space, Open Approach (ICD-10-PCS; 2021-02-08)
PROC: 30233N1 Transfusion of Nonautologous Red Blood Cells into Peripheral Vein, Percutaneous Approach (ICD-10-PCS; 2021-02-09)
PROC: 30233R1 Transfusion of Nonautologous Platelets into Peripheral Vein, Percutaneous Approach (ICD-10-PCS; 2021-02-11)
PROC: 30233K1 Transfusion of Nonautologous Frozen Plasma into Peripheral Vein, Percutaneous Approach (ICD-10-PCS; 2021-02-12)
DX: S06.5X0A Traumatic subdural hemorrhage without loss of consciousness, initial encounter (principal); J96.00 Acute respiratory failure, unspecified whether with hypoxia or hypercapnia; I46.9 Cardiac arrest, cause unspecified; J15.6 Pneumonia due to other Gram-negative bacteria; G93.6 Cerebral edema; J69.0 Pneumonitis due to inhalation of food and vomit; F10.239 Alcohol dependence with withdrawal, unspecified; I85.10 Secondary esophageal varices without bleeding; K76.6 Portal hypertension; D68.4 Acquired coagulation factor deficiency; D62 Acute posthemorrhagic anemia; E66.9 Obesity, unspecified; L89.302 Pressure ulcer of unspecified buttock, stage 2; K72.90 Hepatic failure, unspecified without coma; D69.6 Thrombocytopenia, unspecified; E11.9 Type 2 diabetes mellitus without complications; I10 Essential (primary) hypertension; F32.9 Major depressive disorder, single episode, unspecified; K70.30 Alcoholic cirrhosis of liver without ascites; W18.39XA Other fall on same level, initial encounter; Y93.89 Activity, other specified; Y92.89 Other specified places as the place of occurrence of the external cause; Y99.8 Other external cause status; Z68.27 Body mass index [BMI] 27.0-27.9, adult; Z20.822 Contact with and (suspected) exposure to COVID-19
CPT/HCPCS: 31500; 36415; 36430; 36600; 70450; 71045; 80048; 80053; 80202; 80305; 81001; 82140; 82435; 82803; 82947; 82948; 83605; 83735; 83930; 84100; 84132; 84295; 85018; 85025; 85027; 85384; 85610; 85730; 86140; 86850; 86900; 86901; 86923; 86927; 87040; 87071; 87077; 87088; 87186; 87205; 87426; 92526; 92610; 93970; 94002; 94003; 94150; 94640; 94664; 94667; 94668; 97039; 99291; 99292; C1751; C1894; C9113; G0378; J0330; J0360; J0690; J0696; J1100; J1580; J1940; J1953; J2001; J2060; J2150; J2250; J2405; J2543; J2704; J2710; J2997; J3010; J3370; J3411; J3430; J3475; J3480; J3490; J7030; J7040; J7050; J7060; J7120; P9012; P9016; P9017; P9034

== ENCOUNTER 2021-09-22 14:43 | Emergency (ER) | payer MEDICAID ==
[~2021-09-22] VITALS: Ht 177.8 cm; Wt 108.9 kg
[~2021-09-22 14:43] MED LIST changes: +PROP20TA7 PO
[2021-09-22] MEDS ORDERED: EPINEPHRINE 1MG SYG 10ML IVP ONE (15:13)
[2021-09-22] MEDS ORDERED: DEXTROSE 50%-WATER 50 ML DISP.SYRIN IV ONE (15:13)
== END 2021-09-22 18:17 ==
LOC: EDH 15:12
DX: I46.9 Cardiac arrest, cause unspecified (principal); Z79.899 Other long term (current) drug therapy
CPT/HCPCS: 92950; 99285; J0171; J7070